=== PATIENT | female | born 1965 | race Hispanic/Latino ===

== ENCOUNTER 2017-12-18 07:41 | Emergency (ER) | payer OTHER ==
--- NOTE | 2017-12-18 08:33 | RAD REPORT ---
EXAM DESCRIPTION: CT - Head C Spine Mpr Wo Con - 12/18/2017 8:20 am CLINICAL HISTORY: Headache and neck pain COMPARISON: 2012 TECHNIQUE: Computed axial tomography of the head and cervical spine was obtained. Sagittal and coronal reconstruction was performed. All CT scans are performed using dose optimization technique as appropriate and may include automated exposure control or mA/KV adjustment according to patient size. FINDINGS: An intracranial bleed is not seen. The ventricles are normal in caliber. An extra-axial fl uid collection is not noted.Fluid within the visualized sinuses and mastoids is not seen A cervical fracture is not visualized. No dislocation is noted. Spinal stenosis is not seen. An obvio us significant disc bulge/herniation is not noted IMPRESSION: No acute intracranial abnormality is seen. A cervical fracture is not visualized. If the patient continues to have symptoms to suggest intracra nial /spinal cord/spinal canal pathology then MRI would be recommended
--- NOTE | 2017-12-18 08:50 | ER ---
Nurse's Notes [facility] Name: Erika Byrnes Age: 52 yrs Sex: Female : 1965 Arrival Date: 12/18/2017 Time: 07:43 Bed 5 Private MD: Diagnosis: Headache Presentation: 12/18 07:51 Presenting complaint: Patient states: began having headaches recently, and began ss checking BP 3 days ago. Pt noticed her BP has been elevated, 164/117, 179/105 even with doubling up on her home medication. Pt is unable to see her PCP until Thursday. Transition of care: patient was not received from another setting of care. Onset of symptoms is unknown. Risk Assessment: Do you want to hurt yourself or someone else? Patient reports no desire to harm self or others. Initial Sepsis Screen: Does the patient meet any 2 criteria? No. Patient's initial sepsis screen is negative. Does the patient have a suspected source of infection? No. Patient's initial sepsis screen is negative. Care prior to arrival: None. 07:51 Method Of Arrival: Ambulatory ss 07:51 Acuity: JAIRO 3 ss Historical: - Allergies: 07:54 No Known Allergies; ss - Home Meds: 07:54 losartan 50 mg Oral tab 1 tab once daily [Active]; metoprolol tartrate 50 mg Oral tab 1 ss tab once daily [Active]; montelukast 10 mg oral tab 1 tab once daily [Active]; - PMHx: 07:54 Hypertension; ss - PSHx: 07:54 Cholecystectomy; cyst removed from breasts and ovaries; tummy tuck; C Section; ss - Immunization history:: Adult Immunizations up to date. - Social history:: Smoking status: Patient/guardian denies using tobacco. - Ebola Screening: : Patient denies exposure to infectious person Patient denies travel to an Ebola-affected area in the 21 days before illness onset. Screenin:49 Abuse screen: Denies threats or abuse. Denies injuries from another. Nutritional ph screening: No deficits noted. Tuberculosis screening: No symptoms or risk factors identified. Fall Risk None identified. Assessment: 08:00 General: Appears in no apparent distress. Behavior is calm, cooperative, appropriate ph for age, Denies fever, feeling ill. Pain: Complains of pain in occipital area and base of the skull. Neuro: Level of Consciousness is awake, alert, obeys commands, Oriented to person, place, time, situation, Moves all extremities. Full function Gait is steady, Speech is normal, Facial symmetry appears normal, Intact Reports headache occipital area, Denies weakness blurred vision dizziness. Cardiovascular: Denies chest pain, nausea, shortness of breath, Capillary refill < 3 seconds in bilateral fingers Patient's skin is warm and dry. Respiratory: Airway is patent Respiratory effort is even, unlabored. Derm: Skin is intact, is healthy with good turgor, Skin is pink, warm \T\ dry. Musculoskeletal: Circulation, motion, and sensation intact. Range of motion: intact in all extremities. 08:56 Reassessment: Patient appears in no apparent distress at this time. Patient and/or ph family updated on plan of care and expected duration. Pain level reassessed. Patient is alert, oriented x 3, equal unlabored respirations, skin warm/dry/pink. Pt d/c home. Vital Signs: 07:54 BP 155 / 100; Pulse 73; Resp 17; Temp 98.2(O); Pulse Ox 97% on R/A; Weight 86.18 kg; ss Height 5 ft. 3 in. (160.02 cm); Pain 5/10; 08:50 BP 134 / 80; Pulse 68; Resp 18; Pulse Ox 98% on R/A; ph 07:54 Body Mass Index 33.66 (86.18 kg, 160.02 cm) ss Jimmy Coma Score: 08:54 Eye Response: spontaneous(4). Verbal Response: oriented(5). Motor Response: obeys snw commands(6). Total: 15. NIH Stroke Scale Scores: 08:16 NIHSS Score: 0 snw ED Course: 07:43 Patient arrived in ED. tw3 07:53 Triage completed. ss 07:53 Litzy Boyce, MAHNAZ is Primary Nurse. ph 07:54 Arm band placed on right wrist. ss 07:59 [facility] snw 07:59 Omega Marcelino MD is Attending Physician. snw 08:18 CT completed. Patient tolerated procedure well. Patient moved to CT via wheelchair. nj Patient moved back from CT. 08:20 CT Head C Spine In Process Unspecified. EDMS 08:50 Patient has correct armband on for positive identification. Placed in gown. Bed in low ph position. Call light in reach. Side rails up X 1. Pulse ox on. NIBP on. Warm blanket given. 08:50 No provider procedures requiring assistance completed. ph 08:57 Patient did not have IV access during this emergency room visit. ph Administered Medications: No medications were administered Outcome: 08:49 Discharge ordered by . snw 08:57 Discharged to home ambulatory. ph 08:57 Condition: good 08:57 Discharge instructions given to patient, Instructed on discharge instructions, follow up and referral plans. medication usage, Demonstrated understanding of instructions, follow-up care, medications, Prescriptions given X 3. 08:58 Patient left the ED. ph NIH Stroke Scale - NIH Stroke Score Date: 12/18/2017 Time: 08:16 Total Score = 0 1a. Level of Consciousness (LOC) - 0(Alert) 1b. Level of Consciousness (LOC) (Year \T\ Age) - 0(Both) 1c. LOC Commands (Open \T\ Closes Eyes/Vegetable Scullion) - 0(Both) 2. Best Gaze (Lateral Gaze Paresis) - 0(Normal) 3. Visual Field Loss - 0(No visual loss) 4. Facial Palsy - 0(Normal) 5a. Left Arm: Motor (10-second hold) - 0(No drift) 5b. Right Arm: Motor (10-second hold) - 0(No drift) 6a. Left Leg: Motor (5-second hold - always test supine) - 0(No drift) 6b. Right Leg: Motor (5-second hold - always test supine) - 0(No drift) 7. Limb Ataxia (finger/nose \T\ heel/gifford - test with eyes open) - 0(Absent) 8. Sensory Loss (pinprick arms/legs/face) - 0(Normal) 9. Best Language: Aphasia (description/naming/reading) - 0(No aphasia) 10. Dysarthria (speech clarity - read or repeat words) - 0(Normal) 11. Extinction and Inattention (visual/tactile/auditory/spatial/personal) - 0(No abnormality) Initials: snw Signatures: Dispatcher [employer] EDMS Kelly Jackson, DRAWER IN STITCH BONDING MACHINE-C DRAWER IN STITCH BONDING MACHINE-Csnw Amarilis Philippe RN RN Litzy Boyce RN RN Mayank Gould Mickey, Elidia tw3
--- NOTE | 2017-12-18 08:50 | EDPHYS ---
Physician Documentation [facility] Name: Erika Byrnes Age: 52 yrs Sex: Female : 1965 Arrival Date: 12/18/2017 Time: 07:43 Bed 5 Private MD: ED Physician Omega Marcelino HPI: 12/18 08:17 This 52 yrs old Female presents to ER via Ambulatory with complaints of snw Headache. 08:17 The patient complains of pain to the posterior neck/occiput. The patient describes the snw headache as a pressure. Onset: The symptoms/episode began/occurred gradually, 1 month(s) ago. Associated signs and symptoms: The patient has no apparent associated signs or symptoms. Severity of symptoms: At its worst the pain was moderate. Headache History: The patient has had previous headaches and this one is similar to previous episodes. It is unknown whether or not the patient has had similar symptoms in the past. has an appt with Dr. Holden on Thursday. htn hx, takes losartan and metoprolol, migraine hx. Historical: - Allergies: 07:54 No Known Allergies; ss - Home Meds: 07:54 losartan 50 mg Oral tab 1 tab once daily [Active]; metoprolol tartrate 50 mg Oral tab 1 ss tab once daily [Active]; montelukast 10 mg oral tab 1 tab once daily [Active]; - PMHx: 07:54 Hypertension; ss - PSHx: 07:54 Cholecystectomy; cyst removed from breasts and ovaries; tummy tuck; C Section; ss - Immunization history:: Adult Immunizations up to date. - Social history:: Smoking status: Patient/guardian denies using tobacco. - Ebola Screening: : Patient denies exposure to infectious person Patient denies travel to an Ebola-affected area in the 21 days before illness onset. ROS: 08:16 Constitutional: Negative for fever, chills, and weight loss, Eyes: Negative for injury, snw pain, redness, and discharge, ENT: Negative for injury, pain, and discharge, Neck: Negative for injury, pain, and swelling, Cardiovascular: Negative for chest pain, palpitations, and edema, Respiratory: Negative for shortness of breath, cough, wheezing, and pleuritic chest pain, Abdomen/GI: Negative for abdominal pain, nausea, vomiting, diarrhea, and constipation, Back: Negative for injury and pain, : Negative for injury, bleeding, discharge, and swelling, MS/Extremity: Negative for injury and deformity, Skin: Negative for injury, rash, and discoloration. 08:16 Neuro: Positive for headache, of the scalp. Exam: 08:16 Constitutional: This is a well developed, well nourished patient who is awake, alert, snw and in no acute distress. Head/Face: Normocephalic, atraumatic. Eyes: Pupils equal round and reactive to light, extra-ocular motions intact. Lids and lashes normal. Conjunctiva and sclera are non-icteric and not injected. Cornea within normal limits. Periorbital areas with no swelling, redness, or edema. ENT: Nares patent. No nasal discharge, no septal abnormalities noted. Tympanic membranes are normal and external auditory canals are clear. Oropharynx with no redness, swelling, or masses, exudates, or evidence of obstruction, uvula midline. Mucous membranes moist. Neck: Trachea midline, no thyromegaly or masses palpated, and no cervical lymphadenopathy. Supple, full range of motion without nuchal rigidity, or vertebral point tenderness. No Meningismus. Chest/axilla: Normal chest wall appearance and motion. Nontender with no deformity. No lesions are appreciated. Cardiovascular: Regular rate and rhythm with a normal S1 and S2. No gallops, murmurs, or rubs. Normal PMI, no JVD. No pulse deficits. Respiratory: Lungs have equal breath sounds bilaterally, clear to auscultation and percussion. No rales, rhonchi or wheezes noted. No increased work of breathing, no retractions or nasal flaring. Abdomen/GI: Soft, non-tender, with normal bowel sounds. No distension or tympany. No guarding or rebound. No evidence of tenderness throughout. Back: No spinal tenderness. No costovertebral tenderness. Full range of motion. Skin: Warm, dry with normal turgor. Normal color with no rashes, no lesions, and no evidence of cellulitis. MS/ Extremity: Pulses equal, no cyanosis. Neurovascular intact. Full, normal range of motion. Neuro: Awake and alert, GCS 15, oriented to person, place, time, and situation. Cranial nerves II-XII grossly intact. Motor strength 5/5 in all extremities. Sensory grossly intact. Cerebellar exam normal. Normal gait. Vital Signs: 07:54 BP 155 / 100; Pulse 73; Resp 17; Temp 98.2(O); Pulse Ox 97% on R/A; Weight 86.18 kg; ss Height 5 ft. 3 in. (160.02 cm); Pain 5/10; 08:50 BP 134 / 80; Pulse 68; Resp 18; Pulse Ox 98% on R/A; ph 07:54 Body Mass Index 33.66 (86.18 kg, 160.02 cm) ss NIH Stroke Scale Scores: 08:16 NIHSS Score: 0 snw Jimmy Coma Score: 08:54 Eye Response: spontaneous(4). Verbal Response: oriented(5). Motor Response: obeys snw commands(6). Total: 15. MDM: 08:00 Patient medically screened. snw 08:54 Data reviewed: vital signs, nurses notes. Data interpreted: Pulse oximetry: on room air snw is 98 %. Interpretation: normal. Counseling: I had a detailed discussion with the patient and/or guardian regarding: the historical points, exam findings, and any diagnostic results supporting the discharge/admit diagnosis, the presence of at least one elevated blood pressure reading (>120/80) during this emergency department visit, the need for outpatient follow up, to return to the emergency department if symptoms worsen or persist or if there are any questions or concerns that arise at home. 12/18 08:06 Order name: CT Head C Spine; Complete Time: 08:36 snw Administered Medications: No medications were administered Disposition: 10:11 Co-signature as Attending Physician, Omega Marcelino MD I agree with the assessment and kdr plan of care. Disposition: 12/18/17 08:49 Discharged to Home. Impression: Headache. - Condition is Stable. - Discharge Instructions: General Headache Without Cause, Hypertension. - Prescriptions for Clonidine 0.1 mg Oral Tablet - take 1 tablet by ORAL route every 12 hours Prn diastolic greater than 90; 30 tablet. Zyrtec 10 mg Oral Tablet - take 1 tablet by ORAL route once daily As needed; 20 tablet. orphenadrine citrate 100 mg Oral Tablet Sustained Release - take 1 tablet by ORAL route 2 times per day As needed; 20 tablet. - Medication Reconciliation Form, Thank You Letter, Antibiotic Education, Prescription Opioid Use form. - Follow up: Private Physician; When: 2 - 3 days; Reason: Recheck today's complaints, Continuance of care, Re-evaluation by your physician. Follow up: Emergency Department; When: As needed; Reason: Worsening of condition. NIH Stroke Scale - NIH Stroke Score Date: 12/18/2017 Time: 08:16 Total Score = 0 1a. Level of Consciousness (LOC) - 0(Alert) 1b. Level of Consciousness (LOC) (Year \T\ Age) - 0(Both) 1c. LOC Commands (Open \T\ Closes Eyes/Developer Programmer Analyst) - 0(Both) 2. Best Gaze (Lateral Gaze Paresis) - 0(Normal) 3. Visual Field Loss - 0(No visual loss) 4. Facial Palsy - 0(Normal) 5a. Left Arm: Motor (10-second hold) - 0(No drift) 5b. Right Arm: Motor (10-second hold) - 0(No drift) 6a. Left Leg: Motor (5-second hold - always test supine) - 0(No drift) 6b. Right Leg: Motor (5-second hold - always test supine) - 0(No drift) 7. Limb Ataxia (finger/nose \T\ heel/gifford - test with eyes open) - 0(Absent) 8. Sensory Loss (pinprick arms/legs/face) - 0(Normal) 9. Best Language: Aphasia (description/naming/reading) - 0(No aphasia) 10. Dysarthria (speech clarity - read or repeat words) - 0(Normal) 11. Extinction and Inattention (visual/tactile/auditory/spatial/personal) - 0(No abnormality) Initials: snw Signatures: Dispatcher [employer] EDMS Omega Marcelino MD MD kdr Therrien, Shelly, MINE CAR REPAIRER-C MINE CAR REPAIRER-Csnw Amairlis Philippe RN RN ss Litzy Boyce RN RN ph Corrections: (The following items were deleted from the chart) 08:58 08:49 12/18/2017 08:49 Discharged to Home. Impression: Headache. Condition is ph Stable. Forms are Medication Reconciliation Form, Thank You Letter, Antibiotic Education, Prescription Opioid Use. Follow up: Private Physician; When: 2 - 3 days; Reason: Recheck today's complaints, Continuance of care, Re-evaluation by your physician. Follow up: Emergency Department; When: As needed; Reason: Worsening of condition. snw
== END 2017-12-18 08:58 | disposition home or self-care (01) ==
LOC: ER 07:41
DX: R51 Headache (principal); I10 Essential (primary) hypertension
CPT/HCPCS: 70450; 72125; 99284

== ENCOUNTER 2018-04-15 21:50 | Emergency (ER) | payer OTHER ==
[2018-04-16] MEDS ORDERED: DIPHENHYDRAMINE 50 MG/ML VIAL ONE (00:50)
[2018-04-16] MEDS ORDERED: ONDANSETRON 4 MG/2 ML VIAL ONE (00:51)
[2018-04-16] MEDS ORDERED: NA CHLORIDE 0.9% 1,000 ML ONE (00:51)
[2018-04-16] MEDS ORDERED: KETOROLAC 30 MG/ML INJ ONE (00:51)
--- NOTE | 2018-04-16 01:19 | EDPHYS ---
Physician Documentation [facility] Name: Erika Byrnes Age: 52 yrs Sex: Female : 1965 Arrival Date: 04/15/2018 Time: 22:02 Bed 6 Private MD: Adilene Holden K ED Physician Jonathan Riley HPI: 04/16 00:58 This 52 yrs old Female presents to ER via Ambulatory with complaints of tw4 Vomiting, Headache. 00:58 The patient presents to the emergency department with nausea, vomiting, that is tw4 continuous. Onset: The symptoms/episode began/occurred today. Possible causes: unknown. The symptoms are aggravated by nothing. The symptoms are alleviated by nothing. Associated signs and symptoms: The patient has no apparent associated signs or symptoms. Severity of symptoms: At their worst the symptoms were moderate in the emergency department the symptoms are unchanged. The patient has not experienced similar symptoms in the past. 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 - Social history:: Smoking status: Patient/guardian denies using tobacco. - Ebola Screening: : No symptoms or risks identified at this time. ROS: 04/16 00:58 Constitutional: Negative for fever, chills, and weight loss, Cardiovascular: Negative tw4 for chest pain, palpitations, and edema, Respiratory: Negative for shortness of breath, cough, wheezing, and pleuritic chest pain, Abdomen/GI: Negative for abdominal pain, nausea, vomiting, diarrhea, and constipation, Back: Negative for injury and pain, MS/Extremity: Negative for injury and deformity. 00:58 Neuro: Positive for headache, Negative for altered mental status, dizziness, gait tw4 disturbance, numbness, seizure activity, speech changes, syncope, near syncope, tinnitus, tremor, visual changes. Exam: 00:58 Constitutional: This is a well developed, well nourished patient who is awake, alert, tw4 and in no acute distress. Head/Face: Normocephalic, atraumatic. Chest/axilla: Normal chest wall appearance and motion. Nontender with no deformity. No lesions are appreciated. Cardiovascular: Regular rate and rhythm with a normal S1 and S2. No gallops, murmurs, or rubs. Normal PMI, no JVD. No pulse deficits. Respiratory: Lungs have equal breath sounds bilaterally, clear to auscultation and percussion. No rales, rhonchi or wheezes noted. No increased work of breathing, no retractions or nasal flaring. Abdomen/GI: Soft, non-tender, with normal bowel sounds. No distension or tympany. No guarding or rebound. No evidence of tenderness throughout. Back: No spinal tenderness. No costovertebral tenderness. Full range of motion. MS/ Extremity: Pulses equal, no cyanosis. Neurovascular intact. Full, normal range of motion. Neuro: Awake and alert, GCS 15, oriented to person, place, time, and situation. Cranial nerves II-XII grossly intact. Motor strength 5/5 in all extremities. Sensory grossly intact. Cerebellar exam normal. Normal gait. Vital Signs: 04/15 22:41 BP 136 / 85; Pulse 75; Resp 16 S; Temp 98.7(O); Pulse Ox 96% on R/A; Weight 90.72 kg bb (R); Height 5 ft. 3 in. (160.02 cm) (R); Pain 7/10; 04/16 01:19 BP 126 / 5; Pulse 73; Resp 16; Temp 98.7; Pulse Ox 98% on R/A; Pain 0/10; tl1 04/15 22:41 Body Mass Index 35.43 (90.72 kg, 160.02 cm) bb MDM: 04/15 23:47 Patient medically screened. tw4 04/16 01:17 Differential diagnosis: Nonspecific abd pain, gastritis. Data reviewed: vital signs, tw4 nurses notes. Data interpreted: manager monitoring: Pulse oximetry: Interpretation: normal. Counseling: I had a detailed discussion with the patient and/or guardian regarding: the historical points, exam findings, and any diagnostic results supporting the discharge/admit diagnosis. Special discussion: I discussed with the patient/guardian in detail that at this point there is no indication for admission to the hospital. It is understood, however, that if the symptoms persist or worsen the patient needs to return immediately for re-evaluation. 01:20 Medication response: Toradol relieved patient's pain. The symptoms have resolved. tw4 Response to treatment: the patient's symptoms have resolved after treatment, the patient's pain is gone, and as a result, I will discharge patient, administer pain medication, Fioricet. ED course: Pt received pain meds, Benadryl and Toradol and stated that she felt better. Administered Medications: 00:45 Drug: NS 0.9% 1000 ml Route: IV; Rate: 1 bolus; Site: right antecubital; tl1 01:26 Follow up: IV Status: Completed infusion tl1 00:46 Drug: Benadryl 12.5 mg Route: IVP; Infused Over: 2 mins; Site: right antecubital; tl1 01:26 Follow up: Response: No adverse reaction; Marked relief of symptoms; Pain is decreased tl1 00:47 Drug: TORadol 30 mg Route: IVP; Infused Over: 2 mins; Site: right antecubital; tl1 01:26 Follow up: Response: No adverse reaction; Marked relief of symptoms; Pain is decreased tl1 00:47 Drug: Zofran 4 mg Route: IVP; Infused Over: 2 mins; Site: right antecubital; tl1 01:26 Follow up: Response: No adverse reaction; Marked relief of symptoms; Nausea is decreasedtl1 Disposition: 04/16/18 01:18 Discharged to Home. Impression: Migraine without aura, not intractable. - Condition is Stable. - Discharge Instructions: Migraine Headache. - Prescriptions for Fiorinal 50- 325-40 mg Oral Capsule - take 1 capsule by ORAL route every 4 hours As needed - not to exceed 6 capsules per day; 20 capsule. - Work release form, Medication Reconciliation Form, Thank You Letter, Antibiotic Education, Prescription Opioid Use form. - Follow up: Adilene Holden MD; When: Upon discharge from the Emergency Department; Reason: If symptoms return, Recheck today's complaints, Continuance of care. - Problem is new. - Symptoms have improved. Signatures: No Rendon RN RN bb Uma Lord RN RN tl1 Jonathan Riley MD MD tw4 Corrections: (The following items were deleted from the chart) 01:30 01:18 04/16/2018 01:18 Discharged to Home. Impression: Migraine without aura, not tl1 intractable. Condition is Stable. Forms are Medication Reconciliation Form, Thank You Letter, Antibiotic Education, Prescription Opioid Use. Follow up: Adilene Holden; When: Upon discharge from the Emergency Department; Reason: If symptoms return, Recheck today's complaints, Continuance of care. Problem is new. Symptoms have improved. tw4
--- NOTE | 2018-04-16 01:19 | ER ---
Nurse's Notes [facility] Name: Erika Byrnes Age: 52 yrs Sex: Female : 1965 Arrival Date: 04/15/2018 Time: 22:02 Bed 6 Private MD: Adilene Holden K Diagnosis: Migraine without aura, not intractable Presentation: 04/15 22:38 Presenting complaint: Patient states: she has been vomiting for a couple of days with bb abdominal then developed a migraine today at approx 1600. Transition of care: patient was not received from another setting of care. Onset of symptoms was April 13, 2018. Risk Assessment: Do you want to hurt yourself or someone else? Patient reports no desire to harm self or others. Initial Sepsis Screen: Does the patient meet any 2 criteria? No. Patient's initial sepsis screen is negative. Does the patient have a suspected source of infection? No. Patient's initial sepsis screen is negative. Care prior to arrival: None. 22:38 Method Of Arrival: Ambulatory bb 22:38 Acuity: JAIRO 3 bb Triage Assessment: 22:45 General: Appears in no apparent distress. uncomfortable, Behavior is calm, cooperative, tl1 appropriate for age. GI: Reports nausea. 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 - Social history:: Smoking status: Patient/guardian denies using tobacco. - Ebola Screening: : No symptoms or risks identified at this time. Screenin:45 Abuse screen: Denies threats or abuse. Denies injuries from another. Nutritional tl1 screening: No deficits noted. Tuberculosis screening: No symptoms or risk factors identified. Fall Risk IV access (20 points). Assessment: 22:45 General: Appears in no apparent distress. uncomfortable, Behavior is calm, cooperative, tl1 appropriate for age. Pain: Complains of pain in forehead Pain currently is 10 out of 10 on a pain scale. Quality of pain is described as pressure, squeezing, throbbing, Pain began 1 day ago. Is continuous. Neuro: Level of Consciousness is awake, alert, obeys commands, Oriented to person, place, time, situation. Cardiovascular: Denies chest pain. Respiratory: Airway is patent Trachea midline Respiratory effort is even, unlabored, Breath sounds are clear bilaterally. GI: Abdomen is non-distended, Bowel sounds present X 4 quads. Reports nausea. : No signs and/or symptoms were reported regarding the genitourinary system. EENT: No signs and/or symptoms were reported regarding the EENT system. Derm: No signs and/or symptoms reported regarding the dermatologic system. Vital Signs: 22:41 BP 136 / 85; Pulse 75; Resp 16 S; Temp 98.7(O); Pulse Ox 96% on R/A; Weight 90.72 kg bb (R); Height 5 ft. 3 in. (160.02 cm) (R); Pain 7/10; 04/16 01:19 BP 126 / 5; Pulse 73; Resp 16; Temp 98.7; Pulse Ox 98% on R/A; Pain 0/10; tl1 04/15 22:41 Body Mass Index 35.43 (90.72 kg, 160.02 cm) bb ED Course: 04/15 22:02 Patient arrived in ED. es 22:03 Adilene Holden MD is Private Physician. es 22:39 Triage completed. bb 22:41 Arm band placed on Patient placed in waiting room, Patient notified of wait time. bb 22:45 Patient has correct armband on for positive identification. Placed in gown. Bed in low tl1 position. Call light in reach. Side rails up X 1. 23:47 Jonathan Riley MD is Attending Physician. tw4 04/16 00:40 Inserted saline lock: 20 gauge in right antecubital area, using aseptic technique. tl1 wrist, using aseptic technique. Blood collected. 00:48 No provider procedures requiring assistance completed. tl1 01:18 Adilene Holden MD is Referral Physician. tw4 01:20 Uma Lord, RN is Primary Nurse. tl1 01:25 IV discontinued, intact, bleeding controlled, No redness/swelling at site. Pressure tl1 dressing applied. Administered Medications: 00:45 Drug: NS 0.9% 1000 ml Route: IV; Rate: 1 bolus; Site: right antecubital; tl1 01:26 Follow up: IV Status: Completed infusion tl1 00:46 Drug: Benadryl 12.5 mg Route: IVP; Infused Over: 2 mins; Site: right antecubital; tl1 01:26 Follow up: Response: No adverse reaction; Marked relief of symptoms; Pain is decreased tl1 00:47 Drug: TORadol 30 mg Route: IVP; Infused Over: 2 mins; Site: right antecubital; tl1 01:26 Follow up: Response: No adverse reaction; Marked relief of symptoms; Pain is decreased tl1 00:47 Drug: Zofran 4 mg Route: IVP; Infused Over: 2 mins; Site: right antecubital; tl1 01:26 Follow up: Response: No adverse reaction; Marked relief of symptoms; Nausea is decreasedtl1 Outcome: 01:18 Discharge ordered by . tw4 01:30 Patient left the ED. tl1 01:30 Discharged to home ambulatory, with family. tl1 01:30 Condition: good 01:30 Discharge instructions given to patient, family, Instructed on discharge instructions, follow up and referral plans. medication usage, Demonstrated understanding of instructions, follow-up care, medications, Prescriptions given X 1. Signatures: Gissell Argueta Brenda, RN RN Uma Lord, RN RN tl1 Jonathan Riley MD MD tw4
== END 2018-04-16 01:30 | disposition home or self-care (01) ==
LOC: ER 21:50
DX: G43.009 Migraine without aura, not intractable, without status migrainosus (principal); I10 Essential (primary) hypertension
CPT/HCPCS: 96361; 96374; 96375; 99284; J2405; J7030

== ENCOUNTER 2018-05-19 08:47 | Emergency (ER) | payer OTHER ==
--- NOTE | 2018-05-19 10:08 | RAD REPORT ---
EXAM DESCRIPTION: RAD - Knee Left 3 View - 05/19/2018 9:49 am CLINICAL HISTORY: PAIN COMPARISON: No comparisons FINDINGS: No fracture or dislocation seen. Small suprapatellar joint effusion.
--- NOTE | 2018-05-19 10:35 | EDPHYS ---
Physician Documentation [facility] Name: Erika Byrnes Age: 52 yrs Sex: Female : 1965 Arrival Date: 05/19/2018 Time: 08:50 Bed 10 Private MD: Adilene Holden K ED Physician Gen Jackson HPI: 05/19 10:00 This 52 yrs old Female presents to ER via Wheelchair with complaints of Left pm1 Knee Injury. 10:00 The patient presents with pain. The complaints affect the left knee. Context: The pm1 problem was sustained outdoors, resulted from running, the patient can fully bear weight, the patient is able to ambulate, with mild difficulty, Problem is a result from a previous injury: No. Onset: The symptoms/episode began/occurred 3 day(s) ago. Modifying factors: The symptoms are alleviated by elevating leg, the symptoms are aggravated by weight bearing, straightening out leg. Associated signs and symptoms: Pertinent negatives calf tenderness, fever, numbness, swelling, tingling, vomiting. Treatment prior to arrival includes: no previous treatment. Severity of symptoms: in the emergency department the symptoms are actually worse. The patient has not experienced similar symptoms in the past. The patient has not recently seen a physician. Patient was jogging and left knee popped 3 days ago but pain was tolerable. Patient was running and felt her left knee pop again but the pain is worse. Patient reports pain below her left patella with straighten leg and she also posterior knee pain. 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 - Ebola Screening: : Patient negative for fever greater than or equal to 101.5 degrees Fahrenheit, and additional compatible Ebola Virus Disease symptoms Patient denies exposure to infectious person Patient denies travel to an Ebola-affected area in the 21 days before illness onset No symptoms or risks identified at this time. - Social history:: Smoking status: . ROS: 10:00 Constitutional: Negative for fever, chills, and weight loss, Eyes: Negative for injury, pm1 pain, redness, and discharge, ENT: Negative for injury, pain, and discharge, Neck: Negative for injury, pain, and swelling, Cardiovascular: Negative for chest pain, palpitations, and edema, Respiratory: Negative for shortness of breath, cough, wheezing, and pleuritic chest pain, Abdomen/GI: Negative for abdominal pain, nausea, vomiting, diarrhea, and constipation, Back: Negative for injury and pain, : Negative for injury, bleeding, discharge, and swelling. 10:00 Skin: Negative for injury, rash, and discoloration, Neuro: Negative for headache, weakness, numbness, tingling, and seizure. 10:00 MS/extremity: Positive for pain, swelling, of the left knee, Negative for deformity, ecchymosis. Exam: 10:00 Constitutional: This is a well developed, well nourished patient who is awake, alert, pm1 and in no acute distress. Head/Face: Normocephalic, atraumatic. Neck: Trachea midline, no thyromegaly or masses palpated, and no cervical lymphadenopathy. Supple, full range of motion without nuchal rigidity, or vertebral point tenderness. No Meningismus. Chest/axilla: Normal chest wall appearance and motion. Nontender with no deformity. No lesions are appreciated. Cardiovascular: Regular rate and rhythm with a normal S1 and S2. No gallops, murmurs, or rubs. Normal PMI, no JVD. No pulse deficits. Respiratory: Lungs have equal breath sounds bilaterally, clear to auscultation and percussion. No rales, rhonchi or wheezes noted. No increased work of breathing, no retractions or nasal flaring. Abdomen/GI: Soft, non-tender, with normal bowel sounds. No distension or tympany. No guarding or rebound. No evidence of tenderness throughout. Back: No spinal tenderness. No costovertebral tenderness. Full range of motion. Skin: Warm, dry with normal turgor. Normal color with no rashes, no lesions, and no evidence of cellulitis. 10:00 Musculoskeletal/extremity: Extremities: grossly normal except: noted in the posterior aspect of left knee: tenderness, There is no evidence of decreased ROM, deformity, ecchymosis, ROM: intact in all extremities, Circulation is intact in all extremities. Vital Signs: 09:27 Pulse 89; Resp 16; Temp 98.2; Pulse Ox 100% on R/A; Weight 79.38 kg; Height 5 ft. 3 in. iw (160.02 cm); Pain 09/08; 09:27 Body Mass Index 31.00 (79.38 kg, 160.02 cm) MDM: 09:08 Patient medically screened. pm1 10:33 Data reviewed: vital signs. Data interpreted: Pulse oximetry: on room air is 100 %. pm1 Interpretation: normal. Counseling: I had a detailed discussion with the patient and/or guardian regarding: the historical points, exam findings, and any diagnostic results supporting the discharge/admit diagnosis, radiology results, the need for outpatient follow up, for definitive care, a orthopedic surgeon, to return to the emergency department if symptoms worsen or persist or if there are any questions or concerns that arise at home. 05/19 09:11 Order name: Knee Left 3 View XRAY; Complete Time: 10:19 pm1 05/19 09:11 Order name: Knee Immobilizer; Complete Time: 10:53 pm1 05/19 09:11 Order name: Crutches; Complete Time: 10:53 pm1 Administered Medications: No medications were administered Disposition: 05/20 07:59 Co-signature as Attending Physician, Gen Jackson MD I agree with the assessment and red plan of care. Disposition: 05/19/18 10:34 Discharged to Home. Impression: Pain in left knee. - Condition is Stable. - Discharge Instructions: Crutch Use, Knee Immobilizer, Knee Pain. - Work release form, Medication Reconciliation Form, Thank You Letter form. - Follow up: Emergency Department; When: As needed; Reason: Worsening of condition. Follow up: Private Physician; When: 2 - 3 days; Reason: Recheck today's complaints, Continuance of care, Re-evaluation by your physician. - Problem is new. - Symptoms have improved. Signatures: Dispatcher [employer] Azalia Mata, Gen Oh RN, MD MD cha Williams, Irene, RN RN iw Marinas, Patrick, JODIE A R COLLECTIONS REP pm1 Corrections: (The following items were deleted from the chart) 05/19 11:47 10:34 05/19/2018 10:34 Discharged to Home. Impression: Pain in left knee. Condition is dm5 Stable. Forms are Medication Reconciliation Form, Thank You Letter, Antibiotic Education, Prescription Opioid Use. Follow up: Emergency Department; When: As needed; Reason: Worsening of condition. Follow up: Private Physician; When: 2 - 3 days; Reason: Recheck today's complaints, Continuance of care, Re-evaluation by your physician. Problem is new. Symptoms have improved. pm1
--- NOTE | 2018-05-19 10:35 | ER ---
Nurse's Notes [facility] Name: Erika Byrnes Age: 52 yrs Sex: Female : 1965 Arrival Date: 05/19/2018 Time: 08:50 Bed 10 Private MD: Adilene Holden K Diagnosis: Pain in left knee Presentation: 05/19 09:16 Presenting complaint: Patient states: left knee pain after running on Thursday, heard and iw felt a pop, pain worse now. Transition of care: patient was not received from another setting of care. Onset of symptoms was May 16, 2018. Risk Assessment: Do you want to hurt yourself or someone else? Patient reports no desire to harm self or others. Initial Sepsis Screen: Does the patient meet any 2 criteria? No. Patient's initial sepsis screen is negative. Does the patient have a suspected source of infection? No. Patient's initial sepsis screen is negative. Care prior to arrival: None. 09:16 Method Of Arrival: Wheelchair iw 09:16 Acuity: JAIRO 4 iw Triage Assessment: 09:45 General: Appears in no apparent distress. Behavior is calm. Injury Description:. 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 - Ebola Screening: : Patient negative for fever greater than or equal to 101.5 degrees Fahrenheit, and additional compatible Ebola Virus Disease symptoms Patient denies exposure to infectious person Patient denies travel to an Ebola-affected area in the 21 days before illness onset No symptoms or risks identified at this time. - Social history:: Smoking status: . Screenin:46 Abuse screen: Denies threats or abuse. Denies injuries from another. Nutritional iw screening: No deficits noted. Tuberculosis screening: No symptoms or risk factors identified. Fall Risk None identified. Assessment: 09:45 General: Appears in no apparent distress. Behavior is calm, cooperative. Pain: iw Complains of pain in left knee. Neuro: Level of Consciousness is awake, alert, obeys commands, Oriented to person, place, time. Cardiovascular: Patient's skin is warm and dry. Respiratory: Respiratory effort is even, unlabored, Respiratory pattern is regular. Derm: Skin is intact, is healthy with good turgor. Musculoskeletal: Range of motion: limited in left knee. Vital Signs: 09:27 Pulse 89; Resp 16; Temp 98.2; Pulse Ox 100% on R/A; Weight 79.38 kg; Height 5 ft. 3 in. iw (160.02 cm); Pain 7/10; 09:27 Body Mass Index 31.00 (79.38 kg, 160.02 cm) iw ED Course: 08:50 Patient arrived in ED. mr 08:52 Adilene Holden MD is Private Physician. mr 09:07 Kira Garcia RN is Primary Nurse. iw 09:08 [facility]. pm1 09:08 Gen Jackson MD is Attending Physician. pm1 09:17 Triage completed. iw 09:17 Patient has correct armband on for positive identification. iw 09:28 Arm band placed on. iw 09:49 X-ray completed. Portable x-ray completed in exam room. Patient tolerated procedure jb2 well. 09:49 Knee Left 3 View XRAY In Process Unspecified. EDMS 10:53 Crutch training done. Knee immobilizer applied on left knee. jb1 11:45 No provider procedures requiring assistance completed. Patient did not have IV access iw during this emergency room visit. Administered Medications: No medications were administered Outcome: 10:34 Discharge ordered by MD. pm1 11:46 Discharged to home with crutches. iw 11:46 Condition: good 11:46 Discharge instructions given to patient, Instructed on discharge instructions, follow up and referral plans. Demonstrated understanding of instructions, follow-up care. 11:47 Patient left the ED. dm5 Signatures: Dispatcher [employer] EDOvidio Crews jb1 Azalia Burdick, Elodia Freeman RN mr GoldbergMasood jb2 Kira Garcia, MAHNAZ RN iw Karthik Jung NP LANCE CREWMEMBER/MLRS SERGEANT pm1
== END 2018-05-19 11:47 | disposition home or self-care (01) ==
LOC: ER 08:47
DX: M25.562 Pain in left knee (principal); I10 Essential (primary) hypertension
CPT/HCPCS: 99283

== ENCOUNTER 2018-10-12 09:24 | Emergency (ER) | payer OTHER ==
--- OUTSIDE RECORDS SUMMARY | 2018-10-12 09:28 | XMS REPORT ---
:1965 Author Organization eClinicalWorks Care Team Providers Name Role Phone Keegan Roach Provider Role Unavailable Allergies, Adverse Reactions, Alerts Substance Reaction Event Type N.K.D.A. Info Not Available Non Drug Allergy Problems Problem Type Condition Code Onset Dates Condition Status Problem Pain in joint of left knee M25.562 Active Problem Strain of left knee, initial S86.912A Active encounter Assessment Pain in joint of left knee M25.562 Active Assessment Strain of left knee, initial S86.912A Active encounter Medications Medication Code Code Instructions Start End Status Dosage System Date Date Hydrochlorothiazide [facility] 39[address]-4 Active not 820-11 [place] [address]-5 Active not 702-10 [place] [address]-4 Active not 607-37 [place] [address]-2 Active not 487-19 defined Results No Known Results Summary Purpose eClinicalWorks Submission
--- OUTSIDE RECORDS SUMMARY | 2018-10-12 09:29 | XMS REPORT ---
:1965 Author Organization [employer] Care Team Providers Name Role Phone Roach Keegan Provider Role Unavailable Allergies, Adverse Reactions, Alerts Substance Reaction Event Type N.K.D.A. Info Not Available Non Drug Allergy Problems Problem Type Condition Code Onset Dates Condition Status Assessment Unspecified internal derangement M23.92 Active of left knee Problem Left sciatic nerve pain M54.32 Active Problem Pain in joint of left knee M25.562 Active Problem Unspecified internal derangement M23.92 Active of left knee Assessment Pain in joint of left knee M25.562 Active Assessment Left sciatic nerve pain M54.32 Active Problem Strain of left knee, initial S86.912A Active encounter Medications Medication Code Code Instructions Start End Status Dosage System Date Date Losartan Potassium [facility] [address]-78 Active not defined Tramadol HCl [facility] 56084196939 50 MG Orally 31 May Active 1 tablet PO Q 6 HRS PRN 24, as needed PAIN 2018 Metoprolol Succinate [facility] [address]-45 Active not ER defined Hydrochlorothiazide [facility] [address]-82 Active not defined Montelukast Sodium [facility] [address]-01 Active not defined Results No Known Results Summary Purpose eClinicalWorks Submission
[2018-10-12] MEDS ORDERED: ONDANSETRON 4 MG/2 ML VIAL ONE (10:06)
[2018-10-12] MEDS ORDERED: DIPHENHYDRAMINE 50 MG/ML VIAL ONE (10:06)
[2018-10-12] MEDS ORDERED: KETOROLAC 30 MG/ML INJ ONE (10:06)
[2018-10-12] MEDS ORDERED: NA CHLORIDE 0.9% 1,000 ML ONE (10:06)
[2018-10-12] MEDS ORDERED: METOCLOPRAMIDE 10 MG/2mL INJ ONE (10:06)
[2018-10-12] MEDS ORDERED: dexAMETHasone 10 MG/ML VIAL ONE (10:06)
[2018-10-12 10:52] LABS: BUN Blood Urea Nitrogen 12 mg/dL (7-18); Bicarbonate 32 mmol/L (21-32); Glucose Level 84 mg/dL (74-106); Potassium 3.3 mmol/L (3.5-5.1); Sodium Level 143 mmol/L (136-145)
[2018-10-12 11:24] LABS: Urine Blood NEGATIVE (NEG); Urine Glucose NEGATIVE (NEG); Urine Protein NEGATIVE (NEG); Urine Specific Gravity 1.015 (1.005-1.030); Urine pH 7.5 (5.0-7.0)
[2018-10-12 11:50] LABS: Absolute Lymphocytes (CBC) 2.4 K/uL (0.7-4.9); Basophils % 0.7 % (0-1.3); Hematocrit 31.8 % (36.0-45.0); Lymphocytes % 38.9 % (15.3-44.8); MPV 9.9 fL (7.6-11.3)
--- NOTE | 2018-10-12 12:22 | ER ---
Nurse's Notes [facility] Name: Erika Byrnes Age: 53 yrs Sex: Female : 1965 Arrival Date: 10/12/2018 Time: 09:26 Bed 16 Private MD: Diagnosis: Headache;Anemia in chronic diseases classified elsewhere Presentation: 10/12 09:33 Presenting complaint: Patient states: Headache for several days, worsening today, pt sg reports sensitivity to light, denies Diarrhea/Fever, reports N/V this morning. Transition of care: patient was not received from another setting of care. Onset of symptoms was October 12, 2018. Risk Assessment: Do you want to hurt yourself or someone else? Patient reports no desire to harm self or others. Initial Sepsis Screen: Does the patient meet any 2 criteria? No. Patient's initial sepsis screen is negative. Does the patient have a suspected source of infection? No. Patient's initial sepsis screen is negative. Care prior to arrival: None. 09:33 Method Of Arrival: Ambulatory 09:33 Acuity: JAIRO 4 sg Triage Assessment: 09:44 Headache History: The patient has had previous headaches and this one is similar to previous episodes. General: Appears uncomfortable, well groomed, well developed, well nourished, Behavior is calm, cooperative, appropriate for age. Pain: Quality of pain is described as pressure, throbbing. 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 Gait is steady, Speech is normal, Facial symmetry appears normal, Pupils are PERRLA, Reports headache in entire frontal area. Respiratory: Airway is patent Respiratory effort is even, unlabored, Respiratory pattern is regular, symmetrical. GI: No signs and/or symptoms were reported involving the gastrointestinal system. : No signs and/or symptoms were reported regarding the genitourinary system. Derm: Skin is pink, warm \T\ dry. Musculoskeletal: No signs and/or symptoms reported regarding the musculoskeletal system. Historical: - Allergies: 09:29 NKA; sg - PMHx: :29 Hypertension; Migraines; sg - PSHx: :29 Cholecystectomy; cyst removed from breasts and ovaries; tummy tuck; C Section; sg - Immunization history:: Adult Immunizations not up to date. - Social history:: Smoking status: unknown. - Ebola Screening: : Patient negative for fever greater than or equal to 101.5 degrees Fahrenheit, and additional compatible Ebola Virus Disease symptoms Patient denies exposure to infectious person Patient denies travel to an Ebola-affected area in the 21 days before illness onset No symptoms or risks identified at this time. Screenin:35 Abuse screen: Denies threats or abuse. Denies injuries from another. Nutritional sg screening: No deficits noted. Tuberculosis screening: No symptoms or risk factors identified. Never had TB. Fall Risk None identified. Assessment: 10:45 Reassessment: Patient appears in no apparent distress at this time. Patient and/or sg family updated on plan of care and expected duration. Pain level reassessed. Vital Signs: 09:33 BP 143 / 87; Pulse 55; Resp 18; Temp 97.2; Pulse Ox 100% on R/A; Weight 76.2 kg; Height sg 5 ft. 4 in. (162.56 cm); Pain 10; 09:33 Body Mass Index 28.84 (76.20 kg, 162.56 cm) ED Course: 09:26 Patient arrived in ED. as 09:28 Matteo Cohen, RN is Primary Nurse. sg 09:28 Arm band placed on. sg 09:35 Theodore Singer MD is Attending Physician. rn 09:35 Triage completed. sg 09:39 Gen Samuels PA is PHCP. cp 09:40 Pulse ox on. NIBP on. Noise minimized. Lights dimmed. Warm blanket given. sg 10:08 Urine collected: clean catch specimen, clear. ms 10:20 Initial lab(s) drawn, by ak, sent to lab. Missed attempt(s): 22 gauge in right sg antecubital area. Bleeding controlled, band aid applied, catheter tip intact. 10:25 Missed attempt(s): 22 gauge in left forearm. Bleeding controlled, band aid applied, sv catheter tip intact. 10:30 Inserted saline lock: 24 gauge in left hand, using aseptic technique. Flushed left hand sv with 5 ml normal saline. 10:40 Patient has correct armband on for positive identification. Placed in gown. Bed in low sg position. Side rails up X2. front desk monitor on. Administered Medications: 10:34 Drug: Decadron - Dexamethasone 10 mg Route: IVP; Site: left hand; sg 10:36 Drug: Benadryl 25 mg Route: IVP; Site: left hand; sg 10:36 Drug: Reglan 10 mg Route: IVP; Site: left hand; sg 10:38 Drug: NS 0.9% 1000 ml Route: IV; Rate: 1 bolus; Site: left hand; sg 10:38 Drug: Zofran 4 mg Route: IVP; Site: left hand; sg 10:38 Drug: TORadol 30 mg Route: IVP; Site: left hand; sg Outcome: 12:18 Discharge ordered by MD. cp 12:24 Discharged to home ambulatory, with family. sg 12:24 Condition: good 12:24 Discharge instructions given to patient, Instructed on discharge instructions, follow up and referral plans. medication usage, safety practices, Demonstrated understanding of instructions, follow-up care, medications, Prescriptions given X 2. 12:26 Patient left the ED. sg Signatures: Courtney Paz RN RN Matteo Cohen RN RN sg Martinez, Amelia as Solis, Maria ms Nieto, Roman, MD MD rn Page, Corey, PA PA cp Corrections: (The following items were deleted from the chart) 09:41 09:33 Presenting complaint: Patient states: Headache for several days, worsening today, sg pt reports sensitivity to light, denies N/V/D/Fever sg
--- NOTE | 2018-10-12 12:23 | EDPHYS ---
Physician Documentation [facility] Name: Erika Byrnes Age: 53 yrs Sex: Female : 1965 Arrival Date: 10/12/2018 Time: 09:26 Bed 16 Private MD: ED Physician Theodore Singer HPI: 10/12 10:00 This 53 yrs old Female presents to ER via Ambulatory with complaints of cp Headache. 10:00 The patient complains of pain to the top of head and forehead. cp 10:00 Onset: The symptoms/episode began/occurred 2 day(s) ago. cp 10:00 Associated signs and symptoms: Pertinent positives: nausea, Photophobia vomiting, cp Pertinent negatives: altered mental status, fever, neck stiffness, sinus congestion, sinus tenderness, weakness. Severity of symptoms: in the emergency department the pain is unchanged, despite home interventions. Headache History: The patient has had previous headaches and this one is similar to previous episodes. Historical: - Allergies: 09:29 NKA; sg - PMHx: :29 Hypertension; Migraines; sg - PSHx: 09:29 Cholecystectomy; cyst removed from breasts and ovaries; tummy tuck; C Section; sg - Immunization history:: Adult Immunizations not up to date. - Social history:: Smoking status: unknown. - Ebola Screening: : Patient negative for fever greater than or equal to 101.5 degrees Fahrenheit, and additional compatible Ebola Virus Disease symptoms Patient denies exposure to infectious person Patient denies travel to an Ebola-affected area in the 21 days before illness onset No symptoms or risks identified at this time. ROS: 10:05 Constitutional: Negative for body aches, chills, fever, poor PO intake. cp 10:05 Eyes: Positive for photophobia, Negative for discharge, redness. cp 10:05 ENT: Negative for drainage from ear(s), ear pain, sore throat, difficulty swallowing, difficulty handling secretions. 10:05 Neck: Negative for injury or acute deformity, pain with movement, pain at rest, stiffness. 10:05 Cardiovascular: Negative for chest pain, palpitations. 10:05 Respiratory: Negative for cough, shortness of breath, wheezing. 10:05 Abdomen/GI: Positive for nausea and vomiting, Negative for abdominal pain, diarrhea, constipation, black/tarry stool, rectal bleeding. 10:05 : Negative for urinary symptoms. 10:05 Skin: Negative for cellulitis, rash. 10:05 Neuro: Negative for altered mental status, dizziness, headache, weakness. 10:05 All other systems are negative. Exam: 10:15 Constitutional: The patient appears in no acute distress, alert, awake, cp non-diaphoretic, non-toxic, well developed, well nourished, uncomfortable. 10:15 Head/Face: Normocephalic, atraumatic. cp 10:15 Eyes: Periorbital structures: appear normal, Pupils: equal, round, and reactive to light and accomodation, Extraocular movements: intact throughout, Conjunctiva: normal, no exudate, no injection, Lids and lashes: appear normal, bilaterally. 10:15 ENT: External ear(s): are unremarkable, Ear canal(s): are normal, clear, TM's: dullness, bilaterally, Nose: is normal, Mouth: Lips: moist, Oral mucosa: pink and intact, moist, Posterior pharynx: is normal, airway is patent, no erythema, no exudate. 10:15 Neck: ROM/movement: is normal, is supple, without pain, no range of motions limitations, no nuchal rigidity. 10:15 Chest/axilla: Inspection: normal, Palpation: is normal, no crepitus, no tenderness. 10:15 Cardiovascular: Rate: bradycardic, Rhythm: regular, Edema: is not appreciated, JVD: is not appreciated. 10:15 Respiratory: the patient does not display signs of respiratory distress, Respirations: normal, no use of accessory muscles, no retractions, no splinting, no tachypnea, labored breathing, is not present, Breath sounds: are clear throughout, no decreased breath sounds, no stridor, no wheezing. 10:15 Abdomen/GI: Inspection: abdomen appears normal, Bowel sounds: active, all quadrants, Palpation: abdomen is soft and non-tender, in all quadrants. 10:15 Back: pain, is absent, ROM is normal. 10:15 Skin: no rash present. 10:15 Neuro: Orientation: to person, place \T\ time. Mentation: is normal, Cerebellar function: is grossly normal, Motor: moves all fours, strength is normal, Sensation: is normal. Vital Signs: 09:33 BP 143 / 87; Pulse 55; Resp 18; Temp 97.2; Pulse Ox 100% on R/A; Weight 76.2 kg; Height sg 5 ft. 4 in. (162.56 cm); Pain 10/; 09:33 Body Mass Index 28.84 (76.20 kg, 162.56 cm) sg MDM: 09:35 Patient medically screened. rn 11:00 Differential diagnosis: cluster headache, meningitis, meningoencephalitis, migraine, cp sinusitis, subarachnoid bleed, subdural hematoma, tension headache. 12:16 Data reviewed: vital signs, nurses notes, lab test result(s). cp 12:17 Counseling: I had a detailed discussion with the patient and/or guardian regarding: the cp historical points, exam findings, and any diagnostic results supporting the discharge/admit diagnosis, lab results, to return to the emergency department if symptoms worsen or persist or if there are any questions or concerns that arise at home. 12:17 Response to treatment: the patient's symptoms have markedly improved after treatment, cp and as a result, I will discharge patient. ED course: VSS. Patient reports headache and nausea markedly improved. No vomiting observed while in ED. Will discharge to home for continued monitoring. 10/12 09:58 Order name: CBC with Diff; Complete Time: 12:00 10/12 12:00 Interpretation: Normal except: RBC 3.60; HGB 10.9; HCT 31.8. 10/12 09:58 Order name: BMP; Complete Time: 11:39 cp 10/12 11:40 Interpretation: Normal except: K 3.3. 10/12 10:47 Order name: Urine Dipstick--Ancillary (enter results); Complete Time: 11:39 bd 10/12 11:40 Interpretation: Normal except: UPH 7.5. cp 10/12 10:47 Order name: Urine --Ancillary (enter results); Complete Time: 11:39 bd 10/12 09:58 Order name: Urine Dipstick-Ancillary (obtain specimen); Complete Time: 10:08 cp 10/12 09:58 Order name: Urine Test (obtain specimen); Complete Time: 10:08 cp 10/12 09:58 Order name: IV; Complete Time: 10:36 cp 10/12 11:07 Order name: Labs - recollect needed: CBC only ; Complete Time: 11:34 ss Administered Medications: 10:34 Drug: Decadron - Dexamethasone 10 mg Route: IVP; Site: left hand; sg 10:36 Drug: Benadryl 25 mg Route: IVP; Site: left hand; sg 10:36 Drug: Reglan 10 mg Route: IVP; Site: left hand; sg 10:38 Drug: NS 0.9% 1000 ml Route: IV; Rate: 1 bolus; Site: left hand; sg 10:38 Drug: Zofran 4 mg Route: IVP; Site: left hand; sg 10:38 Drug: TORadol 30 mg Route: IVP; Site: left hand; sg Disposition: 12:35 Chart complete. cp 13:18 Co-signature as Attending Physician, Theodore Singer MD. rn Disposition: 10/12/18 12:18 Discharged to Home. Impression: Headache, Anemia in chronic diseases classified elsewhere. - Condition is Stable. - Discharge Instructions: Anemia, Nonspecific, Migraine Headache. - Prescriptions for Ibuprofen 800 mg Oral Tablet - take 1 tablet by ORAL route every 8 hours As needed take with food; 30 tablet. Zofran 4 mg Oral Tablet - take 1 tablet by ORAL route every 12 hours As needed; 20 tablet. - Work release form, Medication Reconciliation Form, Thank You Letter, Antibiotic Education, Prescription Opioid Use form. - Follow up: Private Physician; When: 1 - 2 days; Reason: Recheck today's complaints. - Problem is new. - Symptoms have improved. Signatures: Dispatcher [employer] Matteo Grady RN RN sg Nieto, Roman, MD MD rn Smirch, Shelby, RN RN ss Page, Corey, PA PA cp Corrections: (The following items were deleted from the chart) 12:26 12:18 10/12/2018 12:18 Discharged to Home. Impression: Headache; Anemia in chronic sg diseases classified elsewhere. Condition is Stable. Forms are Medication Reconciliation Form, Thank You Letter, Antibiotic Education, Prescription Opioid Use. Follow up: Private Physician; When: 1 - 2 days; Reason: Recheck today's complaints. Problem is new. Symptoms have improved. cp
== END 2018-10-12 12:26 | disposition home or self-care (01) ==
LOC: ER 09:24
DX: R51 Headache (principal); D63.8 Anemia in other chronic diseases classified elsewhere; I10 Essential (primary) hypertension
CPT/HCPCS: 85025; 80048; 36415; 81025; 81003; 96375; 96374; 99284; J2765; J1100; J7030; J2405

== ENCOUNTER 2019-09-23 00:55 | Emergency (ER) | payer OTHER ==
--- OUTSIDE RECORDS SUMMARY | 2019-09-23 00:57 | XMS REPORT | Continuity of Care Document ---
:1965 Author Organization [facility] t Address [address] [place] [address] Care Team Providers Name Role Phone Salma Leigh Attending Clinician Lab, Adc Fam Pob I Attending Clinician Unavailable Problems Condition Condition Condition Status Onset Resolution Last Treating Co mments Source Name Details Category Date Date Treatment Clinician Date Pain in Pain in Problem Active [facility] left knee left knee Cruz rupal l [facility] Strain of Strain of Problem Active [facility] left knee, left knee, Mary kes - initial initial Memoria encounter encounter l [facility] Unspecifie Unspecifie Problem Active [facility] internal d internal Mary kes - derangemen derangemen Me moria t of left t of left l knee knee Out[facility] ent Clinics Left Left Problem Active [facility] - nerve pain nerve pain Me moria l [facility] Primary Primary Problem Active [facility] osteoarthr osteoarthr Mary kes - itis of itis of Memoria left knee left knee l [facility] Allergies, Adverse Reactions, Alerts This patient has no known allergies or adverse reactions. Medications Ordered Filled Start Stop Current Ordering Indication Dosage Frequency Signature Comments Components Source Medication Medication Date Date Medication? Clinician (SIG) Name Name Tramadol Tramadol Yes Epifanio [address] [facility] HCl HCl 4-24 Lobo as needed [facility] - 00:00: [facility] 00 l [facility] Hydrochloro Hydrochloro Yes Epifanio not [facility] thiazide thiazide Lobo defined [facility] - [facility]oria l [facility] Montelukast Montelukast Yes Epifanio not [facility] Sodium Sodium Lobo defined [facility] Metoprolol Metoprolol Yes Epifanio not [facility] Succinate Succinate Lobo defined [facility] [place] Losartan Losartan Yes Epifanio not [facility] Potassium Potassium Lobo defined [facility] Procedures This patient has no known procedures. Encounters Start End Encounter Admission Attending Care Care Encounter Source Date/Time Date/Time Type Type Clinicians Facility Department ID 2019-08-08 2019-08-08 Telephone [place], [facility] [id number] 00:00:00 00:00:00 [facility] [id number] [place] [id number] Professio [id number] nal [address] 2019-08-07 2019-08-07 [facility], [facility] [id number] 14:19:11 14:39:11 Visit [facility] [id number] [place] [id number] Professio [id number] nal 044 [address] 2019-06-02 2019-06-02 [facility] [id number] [facility] 10:00[facility]00 10:[facility] 2018-06-23 2018-06-23 [facility] [id number] [facility] 09:30:00 09:30:00 [facility] 2018-05-27 2018-05-27 [facility] [id number] [facility] 10:00:00 10:00:00 [facility] Results This patient has no known results.
--- OUTSIDE RECORDS SUMMARY | 2019-09-23 00:58 | XMS REPORT | Summary of Care ---
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 Bismuth Subsalicylate Take 1 tablet 30 tablet 1 06/30/2019 Active (PEPTO-BISMOL) 262 mg by mouth 4 tabletIndications: Loose (four) times stools daily as needed (diarrhea). [id number] Take 1 30 capsule 1 06/30/2019 Active jennie per capsule by capsuleIndications: mouth every 6 Migraine equivalent (six) hours syndrome as needed (migraine). nystatin/maalox/diphenhydr Take 5 mL by 120 mL 0 06/30/2019 Active AMINE/lidocaine 2 % mouth 4 viscous 1:1:1:1 Susp (four) times suspensionIndications: daily as Sore throat needed (Sore Throat). Gargle and spit, do not swallow documented as of this encounter (statuses as of 08/07/2019) Active Problems Problem Noted Date Migraine equivalent syndrome 06/30/2019 Fever, unspecified fever cause 06/30/2019 Loose stools 06/30/2019 Sore throat 06/30/2019 Exposure to SARS-associated coronavirus 06/30/2019 Suspected Covid-19 Virus Infection 06/30/2019 documented as of this encounter (statuses as of 08/07/2019) Social History Tobacco Use Types Packs/Day Years Used Date Never Smoker Smokeless Tobacco: Never Used Sex Assigned at Date Recorded Not on file Job Start Date Occupation Industry Not on file Not on file Not on file Travel History Travel Start Travel End No recent travel history available. COVID-19 Exposure Response Date Recorded In the last month, have you been in contact with Yes 08/07/2019 2:22 PM CDT someone who was confirmed or suspected to have Coronavirus / COVID-19? documented as of this encounter Last Filed Vital Signs Not on filedocumented in this encounter Plan of Treatment Name Type Priority Associated Diagnoses Order S chedule COVID-19 (PCR MOLECULAR LAB Routine Exposure to Covid -19 Expected: 08/07/2019, TESTING) Virus Expires: 2020 documented as of this encounter Results Not on filedocumented in this encounter Visit Diagnoses Diagnosis Exposure to Covid-19 Virus - Primary documented in this encounter documented as of this encounter
--- OUTSIDE RECORDS SUMMARY | 2019-09-23 00:58 | XMS REPORT | Summary of Care ---
:1965 Author Organization [facility] Address [address] [place] [address] Care Team Providers Name Role Phone NavinStephena Kiera Primary Care Provider Reason for Visit Reason Comments Headache X 2 days Sore Throat X 3 days Chills about a week Other loss of taste and smell Neck Pain X 2 days Headache Hypertension Encounter Details Date Type Department Care Team Description 06/30/2019 Urgent Care [facility] Family Eris Ny MD [address] [place] [address] Dr Keating [address] [place] [address] Migraine equivalent syndrome (Primary Dx ); [place] [address], Acute Care Clinic Fever, unspecified fever cause; [address] [place] [address] Yvonne mcintosh Loose stools; [place], [place] Sore throat; [address] Exposure to SARS-associated coronavirus; [phone] Suspected Covid -19 Virus Infection Allergies No Known Allergiesdocumented as of this encounter (statuses as of 06/30/2019) Medications Medication Sig Dispensed Refills Start Date End Date Status hydroCHLOROthiazide 12.5 Take 12.5 mg 0 04/16/2019 Active mg tablet by mouth every morning. Bismuth Subsalicylate Take 1 tablet 30 tablet 1 06/30/2019 Active (PEPTO-BISMOL) 262 mg by mouth 4 tabletIndications: Loose (four) times stools daily as needed (diarrhea). plcuieqmgvsti-iobt-ececopb Take 1 30 capsule 1 06/30/2019 Active [...] as of this encounter (statuses as of 06/30/2019) Active Problems Problem Noted Date Migraine equivalent syndrome 06/30/2019 Fever, unspecified fever cause 06/30/2019 Loose stools 06/30/2019 Sore throat 06/30/2019 Exposure to SARS-associated coronavirus 06/30/2019 Suspected Covid-19 Virus Infection 06/30/2019 documented as of this encounter (statuses as of 06/30/2019) Social History Tobacco Use Types Packs/Day Years Used Date Never Smoker Smokeless Tobacco: Never Used Sex Assigned at Date Recorded Not on file Job Start Date Occupation Industry Not on file Not on file Not on file Travel History Travel Start Travel End No recent travel history available. documented as of this encounter Last Filed Vital Signs Vital Sign Reading Time Taken Comments Blood Pressure 154/98 06/30/2019 12:14 PM CDT Pulse 59 06/30/2019 12:14 PM CDT Temperature 36.5 C (97.7 F) 06/30/2019 12:14 PM CDT Respiratory Rate 16 06/30/2019 12:14 PM CDT Oxygen Saturation 97% 06/30/2019 12:14 PM CDT Inhaled Oxygen Concentration - - Weight 81.6 kg (180 lb) 06/30/2019 12:14 PM CDT Height 160 cm (5' 3") 06/30/2019 12:14 PM CDT Body Mass Index 31.89 06/30/2019 12:14 PM CDT documented in this encounter Patient Instructions Patient InstructionsEdJw maria MD - 06/30/2019 12:40 PM CDTSelf Care Guidelines pending COVID-19 Screen Result - Increase fluid intake - Self quarantine until otherwise instructed - Call clinic/911 or go to ER should symptoms worsen or fail to improve - Sipping on warm water with lemon juice is effective at helping clear post nasal drip from back of throat -Turn on hot shower water, close the bathroom door, sit down, and inhale the steam -Use a vaporizer/humidifier to increase humidity in rooms -Use Tylenol as directed on bottle for pain/fever. - Jaylyn Rick Day/Night Cold and Flu Severe is a good multi symptom cold medication, however do nottake extra Tylenol in addition to these. -Sipping hot water or warm drinks may be more soothing to the nasal passages than ice cold drinks. -Avoid extremely cool and dry air. -Nasal saline rinses may provide temporary relief of congestion and help remove post nasal drip fromback of throat (use distilled water only) -Drinking 8 or more 8-oz glasses of water, juice, or noncaffeinated beverages daily may help to thinmucous secretions and replace fluid losses. -Home-care measures to relieve throat symptoms include warm saline gargles, which may reduce associated edema; lozenges; popsicles; and cold and slushy beverages. -An upright or semiupright posture, such as sleeping with the head and shoulders raised, may decrease cough related to pharyngeal secretions. Patient Education Preventing Migraine Headaches: Triggers The first step in preventing migraines is to learn what triggers them. You may then be able to control your triggers to avoid or reduce the severity of your migraines. Know your triggers Be aware that you may have more thanone trigger, and that some triggers may work together. Common migraine triggers include: Food and nutrition. Skipping meals or not drinking enough water can trigger headaches. So can certain foods, such as caffeine, chocolate, artificial sweeteners, monosodium glutamate (MSG),aged cheese, or sausage. Alcohol. Red wine and other alcoholic beverages are common migraine triggers. Chemicals. Scents, cleaning products, gasoline, glue, perfume, and paint can be triggers. So can tobacco smoke, including secondhand smoke. Emotions. Stress can trigger headaches or make them worse once they start. Sleep disruption. Staying up late, sleeping late, and traveling across time zones can disrupt your sleep cycle, triggering headaches. Hormones. Many women notice that migraines tend tohappen at a certain point in their menstrual cycle. control pills or hormone replacement therapy may also trigger migraines. Environment and weather. Air travel, changes in altitude, air pressure changes, hot sun, or bright or flashing lights can be triggers. Medicine overuse. Frequent use of pain medicines for headache pain can also cause a headache. This may also be called rebound headache. Control your triggers These are some of the things you can do to try to control triggers: Avoid triggers if you can. For example, stay clear of alcohol and foods that trigger your headaches. Use unscented household products. Keep regular sleep habits. Manage stress to help control emotional triggers. Change your behavior at times when triggers can't be avoided. For example, make sure to get enough rest and drink plenty of water while you're traveling. Make sure to carry a hat, sunglasses, and your medicines. Be alert for migraine symptoms, so you can treat a migraine early if it happens. [employer] reviewed this educational content on 06/30/201719990153-9429 [employer] [address] [place] [address], [place] [address]. All rights reserved. This information is not intended as a substitute for professional medical care. Always follow your healthcare professional's instructions. 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 Patient shares the same office space with her co-worker notes Vamshi hashortensiaen present for about a week, worsening in the last 24 hours Patient also reports loose stools, denies CP, palpitations, SOB or exercise intolerance. Allergies Erika has No Known Allergies. Medications Outpatient Medications Prior to Visit Medication Sig Dispense Refill hydroCHLOROthiazide 12.5 mg tablet Take 12.5 mg by mouth every morning. No facility-administered medications prior to visit. Histories History reviewed. No pertinent past medical history. History reviewed. No pertinent surgical history. Social History Socioeconomic History Marital status: Spouse name: Not on file Number of children: Not on file Years of education: Not on file Highest education level: Not on file Occupational History Not on file Social Needs Financial resource strain: Not on file Food insecurity: Worry: Not on file Inability: Not on file Transportation needs: Medical: Not on file Non-medical: Not on file Tobacco Use Smoking status: Never Smoker Smokeless tobacco: Never Used Substance and Sexual Activity Alcohol use: Not on file Drug use: Not on file Sexual activity: Not on file Lifestyle Physical activity: Days per week: Not on file Minutes per session: Not on file Stress: Not on file Relationships Social connections: Talks on phone: Not on file Gets together: Not on file Attends spiritism service: Not on file Active member of club or organization: Not on file Attends meetings of clubs or organizations: Not on file Relationship status: Not on file Intimate partner violence: Fear of current or ex partner: Not on file Emotionally abused: Not on file Physically abused: Not on file Forced sexual activity: Not on file Other Topics Concern Not on file Social History Narrative Not on file History reviewed. No pertinent family history. Review of Systems Constitutional: Positive for chills and fever. HENT: Positive for sore throat. Respiratory: Negative for cough, chest tightness and shortness of breath. Cardiovascular: Negative for chest pain and palpitations. Gastrointestinal: Positive for diarrhea. Negative for vomiting. Neurological: Positive for headaches. Vital Signs BP (!) 154/98 | Pulse 59 | Temp 36.5 C (97.7 F) (Oral) | Resp 16 | Ht 5' 3" (1.6 m) | Wt 180 lb (81.6 kg) | SpO2 97% | BMI 31.89 kg/m Physical Exam Constitutional: She is oriented to person, place, and time. No distress. HENT: Head: Normocephalic and atraumatic. Neck: Normal range of motion. Neck supple. No tracheal deviation present. Cardiovascular: Normal rate and regular rhythm. Pulmonary/Chest: Effort normal and breath sounds normal. Abdominal: Soft. Bowel sounds are normal. She exhibits no distension. There is tenderness. There is no guarding. Neurological: She is alert and oriented to person, place, and time. Skin: Skin is warm and dry. Capillary refill takes less than 2 seconds. Psychiatric: She has a normal mood and affect. Her behavior is normal. Nursing note and vitals reviewed. Assessment/Plan Migraine equivalent syndrome - phxxobruiscjp-cspm-ywdruyhwgf per capsule; Take 1 capsule by mouth every 6 (six) hours as needed (migraine). Dispense: 30 capsule; Refill: 1 Essential hypertension - BP elevated on arrival. Advised to consider adopting DASH diet plan - Continue HCTZ as prescribed Loose stools - Bismuth Subsalicylate (PEPTO-BISMOL) 262 mg tablet; Take 1 tablet by mouth 4 (four) times daily asneeded (diarrhea). Dispense: 30 tablet; Refill: 1 Sore throat - nystatin/maalox/diphenhydrAMINE/lidocaine 2 % viscous 1:1:1:1 Susp suspension; Take 5 mL by mouth 4 (four) times daily as needed (Sore Throat). Gargle and spit, do not swallow Dispense: 120 mL; Refill: 0 Suspected Covid-19 Virus Infection - Patient reports subjective fever at home. Possible exposure to coworker who tested positive for COVID-19 - CORONAVIRUS COVID-19 TESTING; Future - CORONAVIRUS COVID-19 TESTING Preventive Care: Medication reconciliation, patient education and anticipatory guidance completed. All questions and concerns addressed. AVS given, handout on DASH plan, Migraine and Self Care Guidelines pending COVID-19 Screen Result provided. Return if symptoms worsen or fail to improve. Jw Ny MD, MPH, AAMNVS Elementary Assistant Principal, Department of Family Medicine [facility] [address] [place] [address] [address] [place] [address] Office: 06/30/2019 12:54 PM documented in this encounter Plan of Treatment Health Maintenance Due Date Last Done Comments DTaP,Tdap,and Td Vaccines (1 - 1976 Tdap) PAP SMEAR 1986 Breast Cancer Screening 2005 (MAMMOGRAM) COLONOSCOPY 09/09/2015 Zoster Recombinant Vaccine 09/09/2015 (SHINGRIX) (1 of 2) INFLUENZA VACCINE (#1) 2018 PNEUMOCOCCAL 0-64 YEARS COMBINED Aged Out No longer eligible based on SERIES patient's age to complete this topic documented as of this encounter Procedures Procedure Name Priority Date/Time Associated Diagnosis Comme nts CORONAVIRUS COVID-19 Routine 06/30/2019 12:10 Fever, unspecifi ed Results for this TESTING PM CDT fever cause procedure are in Suspected Covid-19 the resul ts Virus Infection section. documented in this encounter Results CORONAVIRUS COVID-19 TESTING (06/30/2019 12:10 PM CDT) Pathologist Sig moe SARS-CoV-2 Not Detected Not Detected [facility] Specimen Swab - NASOPHARYNGEAL SWAB Narrative Performed At [facility] COVID-19 Assay is an isothermal nucleic [facility] acid amplification test intended for the qualitative detection of nucleic acid from SARS-CoV-2 viral RNA in nasopharyngeal (COMMUNITY OUTREACH SPECIALIST) specimens. It is used under Emergency Use Authorization (EUA) by FDA. The limit of detection (LOD) of the assay is 125 Genome Equivalents/mL. A positive result is indicative of the presence of SARS-CoV-2 RNA. Clinical correlation with patient history and other diagnostic information is necessary to determine patient infection status. A negative (Not Detected) result does not preclude SARS-CoV-2 infection. Clinical correlation with patient history and other diagnostic information should be used in patient management decisions. Invalid: Please collect a new specimen for repeat patient testing if clinically indicated. Performing Organization Address City/State/Zipcode Phone Number [facility] CLIA: [id number], [address] [place], [place] [address] documented in this encounter Visit Diagnoses Diagnosis Migraine equivalent syndrome - Primary Variants of migraine, not elsewhere clas sified, without mention of intractable migraine without mention of status migra inosus Fever, unspecified fever cause Loose stools Abnormal feces Sore throat Acute pharyngitis Exposure to SARS-associated coronavirus Suspected Covid-19 Virus Infection documented in this encounter documented as of this encounter
--- OUTSIDE RECORDS SUMMARY | 2019-09-23 00:58 | XMS REPORT | Summary of Care ---
:1965 Author Organization [facility] Address [address] [place] [address] Care Team Providers Name Role Phone Adilene Holden Primary Care Provider Reason for Visit Reason Comments Exposure Encounter Details Date Type Department Care Team Description 08/07/2019 Assistant Athletic Trainer Visit [facility] Salma Oropeza , WINDOWS MOBILE DEVELOPER [address] [place] [address] Exposure to Covid-19 Medicine - [facility], Adc Fam Pob I Virus (Primary Dx) [address] [place] [address] Allergies No Known Allergiesdocumented as of this encounter (statuses as of 08/07/2019) Medications Medication Sig Dispensed Refills Start Date End Date Status hydroCHLOROthiazide 12.5 Take 12.5 mg 0 04/16/2019 Active mg tablet by mouth every morning. Bismuth Subsalicylate Take 1 tablet 30 tablet 1 06/30/2019 Active (PEPTO-BISMOL) 262 mg by mouth 4 tabletIndications: Loose (four) times stools daily as needed (diarrhea). [id number] Take 1 30 capsule 1 06/30/2019 Active [...]
--- OUTSIDE RECORDS SUMMARY | 2019-09-23 00:58 | XMS REPORT | Summary of Care ---
:1965 Author Organization [facility] Address [address] [place] [address] Care Team Providers Name Role Phone Adilene Holden Primary Care Provider Reason for Visit Reason Comments Results Encounter Details Date Type Department Care Team Description 06/30/2019 Telephone [facility] Jw Ny MD Results [address] [place] [address] [place] [address] [place], [place] [address] [phone] Allergies No Known Allergiesdocumented as of this encounter (statuses as of 06/30/2019) Medications Medication Sig Dispensed Refills Start Date End Date Status hydroCHLOROthiazide 12.5 Take 12.5 mg 0 04/16/2019 Active mg tablet by mouth every morning. Bismuth Subsalicylate Take 1 tablet 30 tablet 1 06/30/2019 Active (PEPTO-BISMOL) 262 mg by mouth 4 tabletIndications: Loose (four) times stools daily as needed (diarrhea). [id number]-zoqm-rtjzkhy Take 1 30 capsule 1 06/30/2019 Active [...] filedocumented in this encounter Plan of Treatment Health [...] this topic documented as of this encounter Results Not on filedocumented in this encounter Insurance Payer Benefit Plan / Group Subscriber ID Effective Dates Phone Address Type NATALI HURST II [id number] 2019-Present HMO /PPO/POS documented as of this encounter
--- OUTSIDE RECORDS SUMMARY | 2019-09-23 00:59 | XMS REPORT | Summary of Care ---
:1965 Author Organization [facility] Address [address] [place] [address] Care Team Providers Name Role Phone Adilene Holden Primary Care Provider Reason for Visit Reason Comments TEST RESULTS Encounter Details Date Type Department Care Team Description 08/08/2019 Telephone [facility] Family Medicine Salma Boone FNP TEST RESULTS - [address] [facility] [address] [place] [address] [place] [address] [phone] Allergies No Known Allergiesdocumented as of this encounter (statuses as of 08/08/2019) Medications Medication Sig Dispensed Refills Start Date End Date Status hydroCHLOROthiazide 12.5 Take 12.5 mg 0 04/16/2019 Active mg tablet by mouth every morning. Bismuth Subsalicylate Take 1 tablet 30 tablet 1 06/30/2019 Active (PEPTO-BISMOL) 262 mg by mouth 4 tabletIndications: Loose (four) times stools daily as needed (diarrhea). dxomroankcagv-zktl-xgokqcw Take 1 30 capsule 1 06/30/2019 Active [...] as of this encounter (statuses as of 08/08/2019) Active Problems Problem Noted Date Migraine equivalent syndrome 06/30/2019 Fever, unspecified fever cause 06/30/2019 Loose stools 06/30/2019 Sore throat 06/30/2019 Exposure to SARS-associated coronavirus 06/30/2019 Suspected Covid-19 Virus Infection 06/30/2019 documented as of this encounter (statuses as of 08/08/2019) Social History Tobacco Use Types Packs/Day Years [...] DTaP,Tdap,and Td Vaccines (1 - 1976 Tdap) Depression Screening 1977 PAP SMEAR 1986 Breast Cancer Screening 2005 (MAMMOGRAM) COLONOSCOPY 09/09/2015 Zoster Recombinant Vaccine 09/09/2015 (SHINGRIX) (1 of 2) INFLUENZA VACCINE (Season Ended) 2019 PNEUMOCOCCAL 0-64 YEARS COMBINED Aged Out No longer eligible based on SERIES patient's age to complete this topic documented as of this encounter Results Not on filedocumented in this encounter Insurance Payer Benefit Plan / Group Subscriber ID Effective Dates Phone Address Type NATALI HURST II [id number] 2019-Present HMO /PPO/POS documented as of this encounter
[2019-09-23] MEDS ORDERED: dexAMETHasone 10 MG/ML VIAL ONE (01:50)
[2019-09-23] MEDS ORDERED: HYDROCODONE/CHLORPHEN 5 ML/OSYR ONE (01:50)
[2019-09-23 02:16] LABS: Absolute Lymphocytes (CBC) 1.7 K/uL (0.7-4.9); Basophils % 0.8 % (0-1.3); Hematocrit 34.9 % (36.0-45.0); Lymphocytes % 22.3 % (15.3-44.8); MPV 9.1 fL (7.6-11.3); RBC Red Blood Cell Count 3.97 M/uL (3.86-4.86)
[2019-09-23 02:25] LABS: Protime INR 1.16
[2019-09-23 02:41] LABS: ALT/SGPT 49 U/L (12-78); AST/SGOT 39 U/L (15-37); Albumin 3.3 g/dL (3.4-5.0); Alkaline Phosphatase 268 U/L (45-117); BUN Blood Urea Nitrogen 11 mg/dL (7-18); Bicarbonate 27 mmol/L (21-32); Bilirubin Direct 0.2 mg/dL (0-0.2); Bilirubin Total 0.6 mg/dL (0.2-1.0); Glucose Level 109 mg/dL (74-106); Magnesium 2.1 mg/dL (1.8-2.4); NT PRO-BNP 48 pg/mL (<125); Potassium 3.3 mmol/L (3.5-5.1); Protein, Total 8.2 g/dL (6.4-8.2); Sodium Level 142 mmol/L (136-145); Troponin (Emerg Dept Use Only) < 0.02 ng/mL (0.0-0.045)
[2019-09-23] MEDS ORDERED: AZITHROMYCIN 250 MG TAB ONE (03:36)
[2019-09-23] MEDS ORDERED: CEFTRIAXONE/SWI 1gm 1 GM/10 ML SYR ONE (03:37)
[2019-09-23] MEDS ORDERED: POTASSIUM 25 MEQ EFFERV TAB ONE (03:37)
--- NOTE | 2019-09-23 04:05 | EDPHYS ---
Physician Documentation [facility] Name: Erika Byrnes Age: 54 yrs Sex: Female : 1965 Arrival Date: 09/23/2019 Time: 00:56 Bed 16 Private MD: ED Physician Zenon Sanchez HPI: 09/22 01:34 This 54 yrs old Female presents to ER via Ambulatory with complaints of Covid cp +, Other, Shortness Of Breath. 01:34 The patient has shortness of breath with light activity. Onset: The symptoms/episode cp began/occurred last night. Duration: The symptoms are continuous. The patient's shortness of breath is aggravated by light activity, walking. Associated signs and symptoms: Pertinent positives: non-productive cough, Pertinent negatives: chest pain, diaphoresis, fever, hemoptysis, vomiting. 01:35 Patient reports she tested positive for COVID-19 on 09-12-2019 and was feeling better cp until becoming short of breath yesterday. 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 - Social history:: Smoking status: Patient denies any tobacco usage or history of. ROS: 01:37 Constitutional: Negative for body aches, chills, fever, poor PO intake. cp 01:37 Eyes: Negative for injury, pain, redness, and discharge. cp 01:37 ENT: Negative for ear pain, sore throat, difficulty swallowing, difficulty handling secretions. 01:37 Cardiovascular: Negative for chest pain, edema, palpitations. 01:37 Respiratory: Positive for cough, "sounds productive", shortness of breath, wheezing. 01:37 Abdomen/GI: Negative for abdominal pain, nausea, vomiting, and diarrhea. 01:37 Back: Negative for radiated pain. 01:37 Skin: Negative for rash. 01:37 Neuro: Negative for altered mental status, headache, weakness. 01:37 All other systems are negative. Exam: 01:45 Constitutional: The patient appears in no acute distress, alert, awake, cp non-diaphoretic, non-toxic, well developed, well nourished. 01:45 Head/Face: Normocephalic, atraumatic. cp 01:45 Eyes: Periorbital structures: appear normal, Conjunctiva: normal, no exudate, no injection, Sclera: no appreciated abnormality, Lids and lashes: appear normal, bilaterally. 01:45 ENT: External ear(s): are unremarkable, Nose: is normal, Mouth: Lips: moist, Oral mucosa: pink and intact, moist, Posterior pharynx: is normal, airway is patent. 01:45 Neck: ROM/movement: is normal, is supple, no meningismus, no nuchal rigidity. 01:45 Chest/axilla: Inspection: normal, Palpation: is normal, no crepitus, no tenderness. 01:45 Cardiovascular: Rate: normal, Rhythm: regular, Edema: is not appreciated, JVD: is not appreciated. 01:45 Respiratory: the patient does not display signs of respiratory distress, Respirations: labored breathing, is not present, intercostal retractions, are absent, shallow respirations, that is mild, Breath sounds: bronchial sounds, that are mild, are heard diffusely, stridor, is not appreciated, wheezing: is not appreciated. 01:45 Abdomen/GI: Exam negative for discomfort, distension, guarding, Inspection: abdomen appears normal. 01:45 Skin: no rash present. 01:45 Neuro: Orientation: to person, place \\T\\ time. Mentation: is normal, Motor: moves all fours, strength is normal. 02:07 ECG was reviewed by the Attending Physician. cp Vital Signs: 01:15 BP 120 / 74; Pulse 96; Resp 18; Temp 99.5; Pulse Ox 98% ; wh 02:18 BP 106 / 79; Pulse 97; Resp 18; Pulse Ox 97% on R/A; wh 03:30 BP 117 / 82; Pulse 87; Resp 22; Pulse Ox 97% on R/A; wh 04:19 BP 123 / 78; Pulse 79; Resp 18; Pulse Ox 96% on R/A; wh MDM: 01:18 Patient medically screened. cp 04:02 Differential diagnosis: Anemia Anxiety Reaction asthma, Bronchitis Chronic Obstructive mh7 Pulmonary Disease pneumonia, Pneumothorax pulmonary edema, Pulmonary Embolism. Data reviewed: vital signs, nurses notes, lab test result(s), CBC, electrolytes. Data interpreted: Pulse oximetry: on room air is 97 %. Interpretation: normal. Counseling: I had a detailed discussion with the patient and/or guardian regarding: the historical points, exam findings, and any diagnostic results supporting the discharge/admit diagnosis, the presence of at least one elevated blood pressure reading (>120/80) during this emergency department visit, lab results, radiology results, the need for outpatient follow up, to return to the emergency department if symptoms worsen or persist or if there are any questions or concerns that arise at home. Response to treatment: the patient's symptoms have resolved after treatment, the patient's blood pressure is in an acceptable range, mental status has returned to baseline, the patient no longer shows bradycardia, the patient is not short of breath, the patient is not tachycardic, the patient's pain is gone, the patient's temperature has normalized. 09/22 01:34 Order name: Basic Metabolic Panel; Complete Time: 02:43 cp 09/22 02:43 Interpretation: Normal except: K 3.3; GLUC 109; GFR 73. cp 09/22 01:34 Order name: CBC with Diff; Complete Time: 02:29 cp 09/22 02:29 Interpretation: Normal except: HGB 11.9; HCT 34.9. cp 09/22 01:34 Order name: LFT's; Complete Time: 02:43 cp 09/22 02:44 Interpretation: Normal except: AST 39; ALK 268; ALB 3.3; GLOB 4.9; A/G 0.7. cp 09/22 01:34 Order name: Magnesium; Complete Time: 02:43 cp 09/22 01:34 Order name: NT PRO-BNP; Complete Time: 02:43 cp 09/22 01:34 Order name: PT-INR; Complete Time: 02:39 cp 09/22 01:34 Order name: Troponin (emerg Dept Use Only); Complete Time: 02:43 cp 09/22 01:34 Order name: XRAY Chest (1 view) cp 09/22 01:34 Order name: DD; Complete Time: 02:39 09/22 02:39 Interpretation: Abnormal: D-DIMER 641. 09/22 02:39 Order name: CT Chest For PE Angio 09/22 01:34 Order name: EKG; Complete Time: 01:34 cp 09/22 01:34 Order name: Cardiac monitoring; Complete Time: 02:21 09/22 01:34 Order name: EKG - Nurse/Tech; Complete Time: 02:21 cp 09/22 01:34 Order name: IV Saline Lock; Complete Time: 02:21 cp 09/22 01:34 Order name: Labs collected and sent; Complete Time: 02:21 09/22 01:34 Order name: O2 Per Protocol; Complete Time: 02:21 09/22 01:34 Order name: O2 Sat Monitoring; Complete Time: 02:21 cp EC:07 Rate is 94 beats/min. Rhythm is regular. LA interval is normal. QRS interval is normal. cp QT interval is normal. Interpreted by me. Reviewed by me. Administered Medications: 02:00 Drug: Decadron - Dexamethasone 6 mg Route: IVP; Site: right antecubital; 03:34 Follow up: Response: No adverse reaction; Marked relief of symptoms 02:00 Drug: Tussionex Pennkinetic ER 5 ml Route: PO; 03:34 Follow up: Response: No adverse reaction; Marked relief of symptoms 03:33 Drug: Zithromax 500 mg Route: PO; 04:18 Follow up: Response: No adverse reaction 03:33 Drug: Rocephin - (cefTRIAXone) 1 grams {Note: Given Rocephin 10 ml IVP per prtotocol.} Route: IVPB; Infused Over: 30 mins; Site: right antecubital; 04:18 Follow up: Response: No adverse reaction; IV Status: Completed infusion 03:34 Drug: Potassium Effervescent Tablet 50 mEq Route: PO; 04:18 Follow up: Response: No adverse reaction Disposition: 04:05 Co-signature as Attending Physician, Zenon Sanchez MD. mh7 Disposition: 09/23/19 04:04 Discharged to Home. Impression: Pneumonia, COVID 19. - Condition is Stable. - Discharge Instructions: Community-Acquired Pneumonia, Adult, [id number], COVID-19. - Prescriptions for Zithromax Z- Berny 250 mg Oral Tablet - take 1 tablet by ORAL route as directed for 5 days Day 1 - take two (2) tablets one time. Day 2, 3, 4 , 5 take one (1) tablet once daily.; 6 tablet. Prednisone 20 mg Oral Tablet - take 2 tablet by ORAL route once daily for 5 days; 10 tablet. Albuterol Sulfate 90 mcg/actuation - inhale 1-2 puff by INHALATION route every 4-6 hours; 1 Inhaler. - Medication Reconciliation Form, Thank You Letter, Antibiotic Education, Prescription Opioid Use form. - Follow up: Private Physician; When: 1 - 2 days; Reason: Worsening of condition, Recheck today's complaints, Continuance of care, Re-evaluation by your physician. - Problem is an ongoing problem. - Symptoms have improved. Signatures: Dispatcher [employer] EDMS Gen Samuels PA PA cp Habalo, Winsy wh Calcote, Vanessa, RN RN vc Holmes, Maurice, MD MD [facility] Corrections: (The following items were deleted from the chart) 04:04 04:04 09/23/2019 04:04 Discharged to Home. Impression: Pneumonia; COVID 19. Condition mh7 is Stable. Forms are Medication Reconciliation Form, Thank You Letter, Antibiotic Education, Prescription Opioid Use. Follow up: Private Physician; When: 1 - 2 days; Reason: Worsening of condition, Recheck today's complaints, Continuance of care, Re-evaluation by your physician. [facility] 04:20 04:04 09/23/2019 04:04 Discharged to Home. Impression: Pneumonia; COVID 19. Condition is Stable. Forms are Medication Reconciliation Form, Thank You Letter, Antibiotic Education, Prescription Opioid Use. Follow up: Private Physician; When: 1 - 2 days; Reason: Worsening of condition, Recheck today's complaints, Continuance of care, Re-evaluation by your physician. Problem is an ongoing problem. Symptoms have improved. 7 11:23 01:35 Patient reports she tested positive for COVID-19 on 09-12-2019 and was feeling cp better until becoming short of breath last yesterday. cp
--- NOTE | 2019-09-23 04:05 | ER ---
Nurse's Notes [facility] Name: Erika Byrnes Age: 54 yrs Sex: Female : 1965 Arrival Date: 09/23/2019 Time: 00:56 Bed 16 Private MD: Diagnosis: Pneumonia;COVID 19 Presentation: 09/22 01:03 Chief complaint: Patient states: "I tested positive on September 11, in [place]. Tonight I vc just started wheezing and I feel more short of breath when I move or lay down.". Coronavirus screen: Patient reports a cough. Patient reports shortness of breath or difficulty breathing. Patient reports a measured and/or subjective temperature greater than 100.4F. Patient denies travel on a cruise ship or to a country the [facility] currently lists as an affected area. Patient denies contact with known and/or suspected case of COVID-19. Prior COVID test collected on: [place] on September 11. Ebola Screen: No symptoms or risks identified at this time. Risk Assessment: Do you want to hurt yourself or someone else? Patient reports no desire to harm self or others. Onset of symptoms is unknown. 01:03 Method Of Arrival: Ambulatory vc 01:03 Acuity: JAIRO 3 vc 01:15 Initial Sepsis Screen: Does the patient meet any 2 criteria? HR > 90 bpm. Does the wh patient have a suspected source of infection? Yes: Other: Covid Positive. Triage Assessment: 01:08 General: Appears in no apparent distress. uncomfortable, ill, Behavior is calm, vc cooperative, appropriate for age. Pain: Denies pain. Respiratory: Reports shortness of breath cough that is labored breathing Onset: The symptoms/episode began/occurred Tested COVID positive on September 11, tonight the symptoms are worse, the patient has moderate shortness of breath. 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 - Social history:: Smoking status: Patient denies any tobacco usage or history of. Screenin:10 Abuse screen: Denies threats or abuse. Nutritional screening: No deficits noted. vc Tuberculosis screening: No symptoms or risk factors identified. Fall Risk None identified. Assessment: 01:15 General: Appears in no apparent distress. Behavior is calm, cooperative, appropriate wh for age. Pain: Denies pain. Neuro: Level of Consciousness is awake, alert, obeys commands, Oriented to person, place, time, situation, Appropriate for age. Cardiovascular: Heart tones S1 S2 Rhythm is regular. Respiratory: Reports shortness of breath cough that is Airway is patent Respiratory effort is even, unlabored, Respiratory pattern is regular, symmetrical, Breath sounds are clear bilaterally. GI: Abdomen is flat, non-distended. : No signs and/or symptoms were reported regarding the genitourinary system. EENT: No signs and/or symptoms were reported regarding the EENT system. Derm: Skin is intact, is healthy with good turgor, Skin is pink, warm \\T\\ dry. normal. Musculoskeletal: Circulation, motion, and sensation intact. 02:50 Reassessment: Patient appears in no apparent distress at this time. No changes from previously documented assessment. Patient and/or family updated on plan of care and expected duration. Pain level reassessed. Patient is alert, oriented x 3, equal unlabored respirations, skin warm/dry/pink. 04:18 Reassessment: Patient appears in no apparent distress at this time. No changes from previously documented assessment. Patient and/or family updated on plan of care and expected duration. Pain level reassessed. Patient is alert, oriented x 3, equal unlabored respirations, skin warm/dry/pink. Vital Signs: 01:15 BP 120 / 74; Pulse 96; Resp 18; Temp 99.5; Pulse Ox 98% ; wh 02:18 BP 106 / 79; Pulse 97; Resp 18; Pulse Ox 97% on R/A; wh 03:30 BP 117 / 82; Pulse 87; Resp 22; Pulse Ox 97% on R/A; wh 04:19 BP 123 / 78; Pulse 79; Resp 18; Pulse Ox 96% on R/A; ED Course: 00:56 Patient arrived in ED. cl3 01:04 Triage completed. vc 01:06 Gen Samuels PA is PHCP. cp 01:06 Zenon Sanchez MD is Attending Physician. cp 01:15 Patient has correct armband on for positive identification. Bed in low position. Call light in reach. Side rails up X 1. monitor car operator on. Pulse ox on. NIBP on. 01:30 Inserted saline lock: 20 gauge in right antecubital area, using aseptic technique. Blood collected. 01:34 Nori Curry is Primary Nurse. 02:03 XRAY Chest (1 view) In Process Unspecified. EDMS 02:18 Arm band placed on right wrist. 02:43 Notified ED physician of a critical lab result(s). DDimer elevated. 03:24 CT Chest For PE Angio In Process Unspecified. EDMS 04:19 No provider procedures requiring assistance completed. IV discontinued, intact, bleeding controlled, No redness/swelling at site. Administered Medications: 02:00 Drug: Decadron - Dexamethasone 6 mg Route: IVP; Site: right antecubital; 03:34 Follow up: Response: No adverse reaction; Marked relief of symptoms 02:00 Drug: Tussionex Pennkinetic ER 5 ml Route: PO; 03:34 Follow up: Response: No adverse reaction; Marked relief of symptoms 03:33 Drug: Zithromax 500 mg Route: PO; 04:18 Follow up: Response: No adverse reaction 03:33 Drug: Rocephin - (cefTRIAXone) 1 grams {Note: Given Rocephin 10 ml IVP per prtotocol.} Route: IVPB; Infused Over: 30 mins; Site: right antecubital; 04:18 Follow up: Response: No adverse reaction; IV Status: Completed infusion 03:34 Drug: Potassium Effervescent Tablet 50 mEq Route: PO; 04:18 Follow up: Response: No adverse reaction Outcome: 04:04 Discharge ordered by . mh7 04:19 Discharged to home ambulatory. 04:19 Condition: stable 04:19 Discharge instructions given to patient, Instructed on discharge instructions, follow up and referral plans. medication usage, POC Demonstrated understanding of instructions, follow-up care, medications, POC Prescriptions given X 3. 04:20 Patient left the ED. Signatures: Dispatcher [employer] EDMS Gen Samuels PA PA cp Habalo, Winsy Radhika Millan3 Griselda Umaña RN RN Zenon Husain MD MD mh7
[2019-09-23 04:27] VITALS: TEMP 99.5
[2019-09-23 04:31] VITALS: BP 123/78; O2SAT 96
--- NOTE | 2019-09-23 08:27 | RAD REPORT ---
EXAM DESCRIPTION: RAD - Chest Single View - 09/23/2019 2:03 am CLINICAL HISTORY: Cough;SOB, history of positive COVID test September 11 COMPARISON: August 2011 TECHNIQUE: AP portable chest image was obtained 09/23/2019 2:03 am . FINDINGS: Lung volumes are low. Interstitial and minimal alveolar opacities are present in the upper right lung field. Interstitial pattern throughout all lung root is increased over the comparison. There is minimal patchy airspace opacification in the upper left lung field and medial right lung bas e. No central pulmonary edema pattern. Heart size and vasculature within normal limits for shallow in spiration portable exam. No measurable pleural effusion and no pneumothorax. No acute bony abnormalit y seen. No acute aortic findings suspected. IMPRESSION: Mild bilateral pneumonia pattern. Peripheral distribution of the infiltrates would be consistent with a COVID-19 pneumonia.
--- NOTE | 2019-09-23 15:25 | EKG ---
Test Date: 2019-09-23 Test Time: 01:59:16 Psychiatric Rn: HI MEASUREMENT RESULTS: Intervals: Rate: 94 NJ: 142 QRSD: 88 QT: 364 QTc: 455 [place]: P: 47 NJ: 142 QRS: 32 T: 48 INTERPRETIVE STATEMENTS: Normal sinus rhythm Possible Anterior infarct, age undetermined Abnormal ECG No previous ECG available for comparison Electronically Signed On 09-23-19 15:24:01 CDT by Maximus Ivy
--- NOTE | 2019-09-26 08:47 | RAD REPORT ---
EXAM DESCRIPTION: CT - Chest For Pe Angio - 09/23/2019 7:05 am CLINICAL HISTORY: Cough;SOB COMPARISON: None. TECHNIQUE: CT CHEST ANGIOGRAPHY WITH IV CONTRAST on 09/23/2019 2:39 AM CDT. MIPS reconstructions were generated. This exam was performed according to our departmental dose-optimization program, which includes autom ated exposure control, adjustment of the mA and/or kV according to patient size and/or use of iterati ve reconstruction technique. MIP images were generated. FINDINGS: Thoracic aorta is normal in course and caliber without aneurysm or dissection. Pulmonary a rteries are adequately opacified without acute or chronic filling defects. The heart is normal in size. There is no pericardial effusion. Intrathoracic lymph nodes are not enla rged. There is no pleural effusion, pleural thickening or pneumothorax. Central airways are patent. There i s patchy nodular airspace disease within the posterior aspects of the mid and upper lungs. There are no acute abnormalities within the limited images of the upper abdomen. There are no acute osseous findings. No suspicious bony lesions. IMPRESSION: Suspect bilateral pneumonia. No aortic dissection or aneurysm. No pulmonary embolus. Electronically signed by: Dariel Costello MD 09/23/2019 3:36 AM CDT Due to temporary technical issues with the PACS/Fluency reporting system, reports are being signed by the in house radiologist without review as a courtesy to ensure prompt reporting. The interpreting r adiologist is fully responsible for the content of the report.
== END 2019-09-23 04:20 | disposition home or self-care (01) ==
LOC: ER 00:55
DX: U07.1 COVID-19 (principal); J18.9 Pneumonia, unspecified organism; I10 Essential (primary) hypertension
CPT/HCPCS: 96365; 93005; 85025; 80048; 36415; 83735; 85610; 85379; 80076; 84484; 83880; 71275; 71045; 96375; 99284; Q9967; J1100; J0696

== ENCOUNTER 2019-10-02 18:39 | Observation (INO) | payer OTHER ==
--- OUTSIDE RECORDS SUMMARY | 2019-10-02 18:42 | XMS REPORT | Continuity of Care Document ---
:1965 Author Organization [facility] t Address [address] [place] [address] Care Team Providers Name Role Phone Salma Leigh Attending Clinician Lab, Adc Fam Pob I Attending Clinician Unavailable Problems Condition Condition Condition Status Onset Resolution Last Treating Co mments Source Name Details Category Date Date Treatment Clinician Date Pain in Pain in Problem Active [facility] left knee left knee Cruz rupal [facility] Strain of Strain of Problem Active [facility] left knee, left knee, Mary kes - initial initial [facility]oria encounter encounter l [facility] Unspecifie Unspecifie Problem Active [facility] d internal d internal Mary kes - derangemen derangemen Me moria t of left t of left l knee knee [facility] Left Left Problem [facility] sciatic sciatic [facility] - nerve pain nerve pain Me moria l [facility] Primary Primary Problem Active [facility] osteoarthr osteoarthr Mary kes - itis of itis of Memoria left knee left knee l [facility] Allergies, Adverse Reactions, Alerts This patient has no known allergies or adverse reactions. Medications Ordered Filled Start Stop Current Ordering Indication Dosage Frequency Signature Comments Components Source Medication Medication Date Date Medication? Clinician (SIG) Name Name Tramadol Tramadol Yes Epifanio [address] [facility] HCl HCl 4-24 Lobo as needed [facility] - 00:00: [facility] 00 l [facility] Hydrochloro Hydrochloro Yes Epifanio not [facility] thiazide thiazide Lobo defined [facility] - [facility] Montelukast Montelukast Yes Epifanio not [facility] Sodium Sodium Lobo defined [facility] Metoprolol Metoprolol Yes Epifanio not [facility] Succinate Succinate Lobo defined [facility] Losartan Losartan Yes Epifanio not [facility] Potassium Potassium Lobo defined [facility] Procedures This patient has no known procedures. Encounters Start End Encounter Admission Attending Care Care Encounter Source Date/Time Date/Time Type Type Clinicians Facility Department ID 2019-08-08 2019-08-08 Telephone [place], [facility] [[email or web address] [id number] 00:00:00 00:00:00 DNsolution [id number] Deport [id number] Professio [phone] nal [address] 2019-08-07 2019-08-07 Home Health [facility], [facility] [id number] 14:19:11 14:39:11 Visit [facility] [id number] Deport [id number] Professio [id number] nal [address] 2019-06-02 2019-06-02 [facility] [id number] [facility] 10:00:00 10:00:00 [facility] 2018-06-23 2018-06-23 [facility] [id number] [facility] 09[facility]30:00 09:30:00 [facility] 2018-05-27 2018-05-27 [facility] [id number] [facility] 10:00:00 10:00:00 [facility] Results This patient has no known results.
[2019-10-02 20:00] LABS: Absolute Lymphocytes (CBC) 2.3 K/uL (0.7-4.9); Basophils % 0.2 % (0-1.3); Hematocrit 35.4 % (36.0-45.0); Lymphocytes % 31.4 % (15.3-44.8); MPV 9.7 fL (7.6-11.3); RBC Red Blood Cell Count 3.95 M/uL (3.86-4.86)
[2019-10-02 20:08] LABS: Protime INR 0.97
[2019-10-02] MEDS ORDERED: METHYLPREDNISOLONE 125 MG INJ ONE (20:18)
[2019-10-02 20:19] LABS: ALT/SGPT 45 U/L (12-78); AST/SGOT 27 U/L (15-37); Albumin 3.4 g/dL (3.4-5.0); Alkaline Phosphatase 158 U/L (45-117); BUN Blood Urea Nitrogen 11 mg/dL (7-18); Bicarbonate 28 mmol/L (21-32); Bilirubin Direct < 0.1 mg/dL (0-0.2); Bilirubin Total 0.2 mg/dL (0.2-1.0); Glucose Level 93 mg/dL (74-106); Magnesium 2.4 mg/dL (1.8-2.4); NT PRO-BNP 87 pg/mL (<125); Potassium 3.8 mmol/L (3.5-5.1); Protein, Total 7.8 g/dL (6.4-8.2); Sodium Level 143 mmol/L (136-145); Troponin (Emerg Dept Use Only) < 0.02 ng/mL (0.0-0.045)
[2019-10-02] MEDS ORDERED: ASPIRIN 81 MG CHEWABLE TABLET ONE (20:19)
[2019-10-02] MEDS ORDERED: NA CHLORIDE 0.9% 1,000 ML ONE (20:19)
--- NOTE | 2019-10-02 21:42 | RAD REPORT ---
EXAM DESCRIPTION: Raquel Single View10/02/2019 8:11 pm CLINICAL HISTORY: Chest pain COMPARISON: September 23, 2019 FINDINGS: Bilateral pulmonary opacities is partially resolved The heart is normal size IMPRESSION: Partial resolution in a mild bilateral pneumonia
--- NOTE | 2019-10-02 22:57 | ER ---
Nurse's Notes [facility] Name: Erika Byrnes Age: 54 yrs Sex: Female : 1965 Arrival Date: 10/02/2019 Time: 18:40 Bed 16 Private MD: Diagnosis: Pulmonary embolism without acute cor pulmonale-right upper and middle lobe Presentation: 10/01 18:50 Chief complaint: Patient states: "I had COVID + September 09. I was seen here after that ss and they told me I have COVID pneumonia, I started to get better, but now as of yesterday it is getting worse again." C/o shortness of breath, cough and chest pressure. Coronavirus screen: cough unrelated to allergies, difficulty breathing, Client reports previous positive COVID test result. Date of collection: September 10, 2019. Ebola Screen: Patient denies exposure to infectious person. Patient denies travel to an Ebola-affected area in the 21 days before illness onset. Initial Sepsis Screen: Does the patient meet any 2 criteria? No. Patient's initial sepsis screen is negative. Does the patient have a suspected source of infection? No. Patient's initial sepsis screen is negative. Risk Assessment: Do you want to hurt yourself or someone else? Patient reports no desire to harm self or others. Onset of symptoms was September 10, 2019. 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 - Social history:: Smoking status: Patient denies any tobacco usage or history of. Screenin:10 Abuse screen: Denies threats or abuse. Denies injuries from another. Nutritional rr5 screening: No deficits noted. Tuberculosis screening: No symptoms or risk factors identified. Fall Risk IV access (20 points). Total Tyler Fall Scale indicates No Risk (0-24 pts). Assessment: 19:20 General: Appears in no apparent distress. uncomfortable, Behavior is calm, cooperative, rr5 appropriate for age. Pain: Complains of pain in chest Pain currently is 6 out of 10 on a pain scale. Quality of pain is described as aching, Pain began gradually, Is intermittent. 19:20 Neuro: Level of Consciousness is awake, alert, obeys commands, Oriented to person, rr5 place, time, situation. Cardiovascular: Reports chest pain, Capillary refill < 3 seconds Patient's skin is warm and dry. Respiratory: Reports shortness of breath Airway is patent Respiratory effort is even, unlabored, Respiratory pattern is regular, symmetrical. GI: Abdomen is round. : No signs and/or symptoms were reported regarding the genitourinary system. EENT: No signs and/or symptoms were reported regarding the EENT system. Derm: Skin is intact, is healthy with good turgor, Skin temperature is warm. Musculoskeletal: Circulation, motion, and sensation intact. Capillary refill < 3 seconds. 20:11 Reassessment: Reassessment: ara from laboratory called D dimer 1070, ED provider rr5 aware. 20:11 Reassessment: Patient appears in no apparent distress at this time. No changes from rr5 previously documented assessment. Patient is alert, oriented x 3, equal unlabored respirations, skin warm/dry/pink. 21:20 Reassessment: Patient appears in no apparent distress at this time. Patient is alert, rr5 oriented x 3, equal unlabored respirations, skin warm/dry/pink. no complaints made. 22:30 Reassessment: Patient appears in no apparent distress at this time. Patient is alert, rr5 oriented x 3, equal unlabored respirations, skin warm/dry/pink. no complaints made Patient denies pain at this time. 23:55 Reassessment: Patient appears in no apparent distress at this time. Patient is alert, rr5 oriented x 3, equal unlabored respirations, skin warm/dry/pink. snacks given. 10/02 00:35 Reassessment: pt vomiting, Gen Page PA notified new orders received pt medicated see bb APR. Vital Signs: 10/01 18:50 BP 129 / 80; Pulse 93; Resp 17; Temp 98.2(O); Pulse Ox 98% on R/A; Weight 79.38 kg; ss Height 5 ft. 3 in. (160.02 cm); Pain 6/10; 20:20 BP 112 / 67; Pulse 80; Resp 17; Pulse Ox 98% ; rr5 21:23 BP 119 / 74; Pulse 64; Resp 19; Pulse Ox 100% ; rr5 22:30 BP 119 / 74; Pulse 69; Resp 15; Pulse Ox 100% ; rr5 23:30 BP 126 / 85; Pulse 75; Resp 20; Temp 98.5; Pulse Ox 99% ; rr5 08 00:49 BP 136 / 85; Pulse 60; Resp 16; Pulse Ox 99% on R/A; rr5 07:28 BP 110 / 65; Pulse 59; Resp 20; Pulse Ox 94% on R/A; Pain 0/10; jr10 10/01 18:50 Body Mass Index 31.00 (79.38 kg, 160.02 cm) ss Chester Coma Score: 10/01 19:20 Eye Response: spontaneous(4). Verbal Response: oriented(5). Motor Response: obeys rr5 commands(6). Total: 15. ED Course: 18:40 Patient arrived in ED. fj1 18:52 Triage completed. ss 18:53 Arm band placed on right wrist. ss 19:07 Juan C Corcoran, RN is Primary Nurse. rr5 19:10 Patient has correct armband on for positive identification. Bed in low position. Call rr5 light in reach. Side rails up X2. monitoring specialist on. Pulse ox on. NIBP on. 19:12 Gen Samuels PA is PHCP. cp 19:12 Funmilayo Pablo MD is Attending Physician. cp 19:50 Inserted saline lock: 20 gauge in right antecubital area, using aseptic technique. oe Blood collected. 19:53 Jonathan Riley MD is Attending Physician. cp 20:11 XRAY Chest (1 view) In Process Unspecified. EDMS 21:23 No provider procedures requiring assistance completed. Patient maintains SpO2 rr5 saturation greater than 95% on room air. 22:00 CT Chest For PE Angio In Process Unspecified. EDMS 22:55 Funmilayo Bustamante MD is Hospitalizing Provider. cp 10/02 00:53 Patient admitted, IV remains in place. intact, No redness/swelling at site. rr5 01:58 Primary Nurse role handed off by Juan C Corcoran RN mt2 01:58 Charmaine Varela, MAHNAZ is Primary Nurse. mt2 07:29 No apparent distress. Awaiting bed assignment. jr10 Administered Medications: 10/01 20:14 Drug: NS 0.9% 1000 ml Route: IV; Rate: 1000 ml/hr; Site: right antecubital; 21:15 Follow up: Response: No adverse reaction; IV Status: Completed infusion; IV Intake: rr5 1000ml 20:14 Drug: SOLU-Medrol 60 mg Route: IVP; Site: right antecubital; 21:15 Follow up: Response: No adverse reaction rr5 20:15 Drug: Aspirin Chewable Tablet 324 mg Route: PO; 21:11 Follow up: Response: No adverse reaction rr5 22:58 Drug: Lovenox 1 mg/kg Route: Sub-Q; Site: right lower abdomen; rr5 10/02 00:35 Drug: Zofran (Ondansetron) 4 mg Route: IVP; Site: right antecubital; 00:49 Drug: Tussionex Pennkinetic ER 5 ml Route: PO; rr5 Intake: 10/01 21:15 IV: 1000ml; Total: 1000ml. rr5 Outcome: 22:56 Decision to Hospitalize by Provider. 10/02 00:53 Admitted to ER Hold. Please see [facility] for further documentation. rr5 Condition: stable Instructed on the need for admit. 07:29 Admitted to Tele accompanied by [facility], via stretcher, room 416, with chart, Report jr10 called to MAHNAZ Adkins 07:29 Condition: stable 07:29 Instructed on the need for admit. 08:02 Patient left the ED. jr10 Signatures: Dispatcher [employer] EDMS No Rendon RN RN bb Amarilis Philippe RN RN ss Page, Corey, DON PA Yosvany Hassan Winsy Juan C Corcoran, RN RN rr5 Gus Connell [facility] Charmaine Varela RN RN mt2 Adrianne Cox RN RN jr10 Corrections: (The following items were deleted from the chart) 10/01 21:05 20:48 Reassessment: rr5 rr5
--- NOTE | 2019-10-02 22:57 | EDPHYS ---
Physician Documentation [facility] Name: Erika Byrnes Age: 54 yrs Sex: Female : 1965 Arrival Date: 10/02/2019 Time: 18:40 Bed 16 Private MD: ED Physician Jonathan Riley HPI: 10/01 19:00 This 54 yrs old Female presents to ER via Ambulatory with complaints of Chest cp Pain, Breathing Difficulty. 19:00 The patient has shortness of breath with light activity. cp 19:00 Onset: The symptoms/episode began/occurred yesterday, and became worse today. Duration: cp The symptoms are continuous, and are steadily getting worse. Associated signs and symptoms: Pertinent positives: productive cough, chest heaviness, Pertinent negatives: dizziness, fever, syncope. Severity of symptoms: in the emergency department the symptoms are unchanged despite home interventions. Patient reports being diagnosed with COVID-19 on 09-10-2019 and feeling better up until yesterday when chest heaviness, SOB started. 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 - Social history:: Smoking status: Patient denies any tobacco usage or history of. ROS: 19:05 Constitutional: Negative for body aches, chills, fever, poor PO intake. cp 19:05 Eyes: Negative for injury, pain, redness, and discharge. cp 19:05 ENT: Negative for ear pain, sore throat, difficulty swallowing, difficulty handling cp secretions. 19:05 Cardiovascular: Positive for chest pain, Negative for edema, palpitations. 19:05 Respiratory: Positive for cough, shortness of breath, Negative for wheezing. 19:05 Abdomen/GI: Negative for abdominal pain, nausea, vomiting, and diarrhea. 19:05 Neuro: Negative for altered mental status, headache, syncope, weakness. 19:05 All other systems are negative. Exam: 19:10 Constitutional: The patient appears in no acute distress, alert, awake, cp non-diaphoretic, non-toxic, well developed, well nourished. 19:10 Head/Face: Normocephalic, atraumatic. cp 19:10 Eyes: Periorbital structures: appear normal, Conjunctiva: normal, no exudate, no injection, Sclera: no appreciated abnormality, Lids and lashes: appear normal, bilaterally. 19:10 ENT: External ear(s): are unremarkable, Nose: is normal, Mouth: Lips: moist, Oral mucosa: moist, Posterior pharynx: is normal, airway is patent, no erythema, no exudate. 19:10 Neck: ROM/movement: is normal, is supple, without pain, no range of motions limitations, no nuchal rigidity. 19:10 Chest/axilla: Inspection: normal, Palpation: is normal, no crepitus, no tenderness. 19:10 Cardiovascular: Rate: normal, Rhythm: regular, Heart sounds: murmur, not appreciated, Edema: is not appreciated, JVD: is not appreciated. 19:10 Respiratory: the patient does not display signs of respiratory distress, Respirations: labored breathing, that is mild, intercostal retractions, are absent, tachypnea, is not appreciated, Breath sounds: decreased breath sounds, are not appreciated, stridor, is not appreciated, wheezing: is not appreciated. 19:10 Abdomen/GI: Inspection: abdomen appears normal, Palpation: abdomen is soft and non-tender, in all quadrants. 19:10 Back: pain, is absent, ROM is normal. 19:10 Skin: no rash present. 19:10 Neuro: Orientation: to person, place \T\ time. Mentation: is normal, Cerebellar function: is grossly normal, Motor: moves all fours, strength is normal, Sensation: is normal. 19:45 ECG was reviewed by the Attending Physician. cp Vital Signs: 18:50 BP 129 / 80; Pulse 93; Resp 17; Temp 98.2(O); Pulse Ox 98% on R/A; Weight 79.38 kg; ss Height 5 ft. 3 in. (160.02 cm); Pain 6/10; 20:20 BP 112 / 67; Pulse 80; Resp 17; Pulse Ox 98% ; rr5 21:23 BP 119 / 74; Pulse 64; Resp 19; Pulse Ox 100% ; rr5 22:30 BP 119 / 74; Pulse 69; Resp 15; Pulse Ox 100% ; rr5 23:30 BP 126 / 85; Pulse 75; Resp 20; Temp 98.5; Pulse Ox 99% ; rr5 08 00:49 BP 136 / 85; Pulse 60; Resp 16; Pulse Ox 99% on R/A; rr5 07:28 BP 110 / 65; Pulse 59; Resp 20; Pulse Ox 94% on R/A; Pain 0/10; jr10 10/01 18:50 Body Mass Index 31.00 (79.38 kg, 160.02 cm) ss Jimmy Coma Score: 10/01 19:20 Eye Response: spontaneous(4). Verbal Response: oriented(5). Motor Response: obeys rr5 commands(6). Total: 15. MDM: 19:18 Patient medically screened. cp 20:00 Differential diagnosis: Anemia asthma, Bronchitis pneumonia, Pneumothorax pulmonary cp edema, Pulmonary Embolism Unstable Angina. 22:55 Data reviewed: vital signs, nurses notes, lab test result(s), EKG, radiologic studies, cp CT scan, plain films, I have discussed the patient's presentation/case with the attending Emergency Department Physician; and as a result, I will admit patient. 22:55 Counseling: I had a detailed discussion with the patient and/or guardian regarding: the cp historical points, exam findings, and any diagnostic results supporting the discharge/admit diagnosis, lab results, radiology results, the need for further work-up and treatment in the hospital. Response to treatment: the patient's symptoms have mildly improved after treatment. Physician consultation: Funmilayo Bustamante MD was called at 22:55, was contacted at 22:55, regarding admission, to the telemetry unit. patient's condition. 10/01 19:20 Order name: Basic Metabolic Panel; Complete Time: 20:36 cp 10/01 22:31 Interpretation: Normal except: CL 110; GFR 84. cp 10/01 19:20 Order name: CBC with Diff; Complete Time: 20:36 cp 10/01 22:31 Interpretation: Normal except: HCT 35.4. cp 10/01 19:20 Order name: LFT's; Complete Time: 20:36 cp 08/ 19:20 Order name: Magnesium; Complete Time: 20:36 cp 08/ 19:20 Order name: NT PRO-BNP; Complete Time: 20:36 cp 08/ 19:20 Order name: PT-INR; Complete Time: 20:36 cp 08/ 19:20 Order name: Troponin (emerg Dept Use Only); Complete Time: 20:36 cp 10/01 19:20 Order name: D-Dimer; Complete Time: 20:36 cp 08/ 20:36 Interpretation: Abnormal: D-DIMER 1070. cp 08/ 00:21 Order name: CBC with Automated Diff EDMS 10/02 00:21 Order name: Comprehensive Metabolic Panel EDMS 10/02 00:21 Order name: Lactate EDMS 10/02 00:21 Order name: Lipid Profile EDMS 10/02 00:21 Order name: Magnesium EDMS 10/02 00:21 Order name: NT PRO-BNP EDMS 10/01 19:20 Order name: XRAY Chest (1 view); Complete Time: 22:26 cp / 22:26 Interpretation: Report review. cp 10/01 20:37 Order name: CT Chest For PE Angio cp 10/02 00:21 Order name: Phosphorus EDMS 10/02 00:21 Order name: Protime (+INR) EDMS 10/02 00:21 Order name: PTT, Activated Partial Thromb EDMS 10/02 00:21 Order name: Troponin I EDMS / 00:25 Order name: C-Reactive Protein EDMS / 00:25 Order name: D-Dimer EDMS 10/02 00:25 Order name: Ferritin EDMS / 00:25 Order name: Lactic Dehydrogenase EDMS 10/02 00:25 Order name: Procalcitonin EDMS 10/02 05:22 Order name: D-Dimer EDMS 10/02 05:26 Order name: Lactic Dehydrogenase EDMS 10/02 05:26 Order name: C-Reactive Protein EDMS / 05:26 Order name: Ferritin EDMS / 19:20 Order name: EKG; Complete Time: 19:20 cp / 19:20 Order name: Cardiac monitoring; Complete Time: 20:18 cp / 19:20 Order name: EKG - Nurse/Tech; Complete Time: 20:18 cp 10/01 19:20 Order name: IV Saline Lock; Complete Time: 20:18 cp 10/01 19:20 Order name: Labs collected and sent; Complete Time: 20:18 cp 10/01 19:20 Order name: O2 Per Protocol; Complete Time: 20:18 cp 10/01 19:20 Order name: O2 Sat Monitoring; Complete Time: 20:18 cp 10/01 22:51 Order name: Misc. Order: bed rest; Complete Time: 22:52 cp 10/02 00:21 Order name: CONS Physician Consult EDMS 10/02 00:21 Order name: Heart Healthy EDMS EC:45 Rate is 74 beats/min. Rhythm is regular. RI interval is normal. QRS interval is normal. cp QT interval is normal. T waves are Inverted in lead III. Interpreted by me. Reviewed by me. Administered Medications: 20:14 Drug: NS 0.9% 1000 ml Route: IV; Rate: 1000 ml/hr; Site: right antecubital; 21:15 Follow up: Response: No adverse reaction; IV Status: Completed infusion; IV Intake: rr5 1000ml 20:14 Drug: SOLU-Medrol 60 mg Route: IVP; Site: right antecubital; 21:15 Follow up: Response: No adverse reaction rr5 20:15 Drug: Aspirin Chewable Tablet 324 mg Route: PO; 21:11 Follow up: Response: No adverse reaction rr5 22:58 Drug: Lovenox 1 mg/kg Route: Sub-Q; Site: right lower abdomen; rr5 10/02 00:35 Drug: Zofran (Ondansetron) 4 mg Route: IVP; Site: right antecubital; bb 00:49 Drug: Tussionex Pennkinetic ER 5 ml Route: PO; rr5 Disposition: 08:36 Co-signature as Attending Physician, Jonathan Riley MD I agree with the assessment and 4 plan of care. Disposition: 10/02/19 22:56 Hospitalization ordered by Funmilayo Bustamante for Inpatient Admission. Preliminary diagnosis is Pulmonary embolism without acute cor pulmonale - right upper and middle lobe. - Bed requested for Telemetry/MedSurg (Inpatient). - Status is Inpatient Admission. jr10 - Condition is Stable. - Problem is new. - Symptoms have improved. Signatures: Dispatcher [employer] EDMS Unique Lindsay RN RN mw No Rendon, RN RN Amarilis Finney, RN RN Gen Marcano PA PA cp Habalo, Winsy wh Wadley, Terrence, MD MD [id number] Juan C Corcoran, RN RN rr5 Adrianne Cox, RN RN jr10 Corrections: (The following items were deleted from the chart) 10/01 23:05 22:56 Hospitalization Ordered by Funmilayo Bustamante MD for Inpatient Admission. Preliminary diagnosis is Pulmonary embolism without acute cor pulmonale - right upper and middle lobe. Bed requested for Telemetry/MedSurg (Inpatient). Status is Inpatient Admission. Condition is Stable. Problem is new. Symptoms have improved. cp 10/02 05:44 10/01 23:05 10/02/2019 22:56 Hospitalization Ordered by Funmilayo Bustamante MD for Inpatient mw Admission. Preliminary diagnosis is Pulmonary embolism without acute cor pulmonale - right upper and middle lobe. Bed requested for [facility] ER HOLD. Status is Inpatient Admission. Condition is Stable. Problem is new. Symptoms have improved. mw 10/02 08:02 05:44 10/02/2019 22:56 Hospitalization Ordered by Funmilayo Bustamante MD for Inpatient jr10 Admission. Preliminary diagnosis is Pulmonary embolism without acute cor pulmonale - right upper and middle lobe. Bed requested for Telemetry/MedSurg (Inpatient). Status is Inpatient Admission. Condition is Stable. Problem is new. Symptoms have improved.
[2019-10-02] MEDS ORDERED: ENOXAPARIN 80 MG/0.8 ML SQ ONE (23:04)
[2019-10-03] MEDS ORDERED: ONDANSETRON 4 MG/2 ML VIAL IV PRN (00:11)
[2019-10-03] MEDS ORDERED: ACETAMINOPHEN 500 MG TAB PO PRN (00:11)
[2019-10-03] MEDS ORDERED: HYDROCODONE/CHLORPHEN 5 ML/OSYR ONE (00:58)
[2019-10-03 01:39] VITALS: BMI 30.9
[2019-10-03 05:09] LABS: Absolute Lymphocytes (CBC) 1.2 K/uL (0.7-4.9); Basophils % 0.4 % (0-1.3); Lymphocytes % 17.7 % (15.3-44.8); MPV 10.2 fL (7.6-11.3); RBC Red Blood Cell Count 3.43 M/uL (3.86-4.86)
[2019-10-03 05:12] LABS: Protime INR 1.08
[2019-10-03 05:25] LABS: ALT/SGPT 35 U/L (12-78); AST/SGOT 20 U/L (15-37); Albumin 2.9 g/dL (3.4-5.0); Alkaline Phosphatase 134 U/L (45-117); BUN Blood Urea Nitrogen 12 mg/dL (7-18); Bicarbonate 26 mmol/L (21-32); Bilirubin Total 0.2 mg/dL (0.2-1.0); Ferritin 48.3 ng/mL (8-388); Glucose Level 151 mg/dL (74-106); HDL Cholesterol 44 mg/dL (40-60); LDL Cholesterol, Calculated 103 (<130); Magnesium 2.3 mg/dL (1.8-2.4); NT PRO-BNP 81 pg/mL (<125); Phosphorus 1.5 mg/dL (2.5-4.9); Potassium 3.8 mmol/L (3.5-5.1); Protein, Total 6.9 g/dL (6.4-8.2); Sodium Level 141 mmol/L (136-145); Troponin I < 0.02 ng/mL (0.0-0.045)
--- NOTE | 2019-10-03 06:11 | P.HP ---
Certification for Inpatient Patient admitted to: Observation With expected LOS: <2 Midnights Patient will require the following post-hospital care: None Practitioner: I am a practitioner with admitting privileges, knowledge of patient current condition, hospital course, and medical plan of care. Services: Services provided to patient in accordance with Admission requirements found in Title 42 Section 412.3 of the Code of Federal Regulations Patient History Date of Service: 10/03/19 Reason for admission: PULMONARY EMBOLISM/COVID-19 PNEUMONIA History of Present Illness: Patient is a 54-year-old female with a history of COVID-19 Pneumonia. She was diagnosed many weeks ago. However, she feels like she has been getting more short of breath. She was found to have hypoxemia so she came into the Emergency room . In the Emergency room , she was found to have pulmonary embolism. She will be admitted for observation. She is oxygenating better. We got her on blood thinners. If she does well possible discharge in the next 24-48 hours. Also, no evidence of RV strain noted on CT scan. Spoke with pulmonary are ready and they are anticipating discharge as they do not feel echocardiogram is necessary at this time. Allergies No Known Allergies Allergy (Verified 06/11/15 12:07) Home Medications: Losartan Potassium [Cozaar*] 50 mg PO DAILY 06/11/15 Albuterol Inhaler [Ventolin Inhaler*] 2 puff IH Q6H PRN #1 hfa.aer.ad 10/03/19 Apixaban [Eliquis] 5 mg PO BID #60 tablet 10/03/19 Apixaban [Eliquis] 10 mg PO BID #14 tab.ds.pk 10/03/19 Benzonatate [Tessalon Perle*] 200 mg PO TID PRN #30 cap 10/03/19 - Past Medical/Surgical History Has patient received pneumonia vaccine in the past: No Diabetic: No -: hypertension -: COVID-19 -: breast cyst removed -: patrice chahal - Family History Father Medical History: Heart disease, Cancer, Other (see notes) Notes: multiple sclerosis Mother Medical History: Hypertension, Diabetes, Cancer - Social History Smoking Status: Unknown if ever smoked Alcohol use: Yes CD- Drugs: No Caffeine use: Yes Review of Systems 10-point ROS is otherwise unremarkable Physical Examination - Vital Signs Temperature: 98 F Blood Pressure: 109/71 Pulse: 59 Respirations: 16 Pulse Ox (%): 93 - Physical Exam General: Alert, In no apparent distress, Oriented x3 HEENT: Atraumatic, PERRLA, Mucous membr. moist/pink, EOMI, Sclerae nonicteric Neck: Supple, 2+ carotid pulse no bruit, No LAD, Without JVD or thyroid abnormality Respiratory: Clear to auscultation bilaterally, Normal air movement Cardiovascular: Regular rate/rhythm, Normal S1 S2, No murmurs Gastrointestinal: Normal bowel sounds, No tenderness Musculoskeletal: No tenderness Integumentary: No rashes Neurological: Normal gait, Normal speech, Normal strength at 5/5 x4 extr, Normal tone, Normal affect Lymphatics: No axilla or inguinal lymphadenopathy - Studies Laboratory Data (last 24 hrs) 10/02/19 19:44: PT 11.4, INR 0.97 10/02/19 19:44: WBC 7.2, Hgb 12.0, Hct 35.4 L, Plt Count 342 10/02/19 19:44: Sodium 143, Potassium 3.8, BUN 11, Creatinine 0.72, Glucose 93, Magnesium 2.4, Total Bilirubin 0.2, AST 27, ALT 45, Alkaline Phosphatase 158 H Assessment & Plan - Problems (Diagnosis) (1) Pneumonia due to COVID-19 virus Status: Acute (2) Pulmonary embolism Status: Acute Qualifiers: Acute cor pulmonale presence: unspecified - Plan 1. Continue with IV antibiotics 2. Anti coagulation with Lovenox 3. Repeat chest x-ray if symptoms are progressively worsening 4. O2 per protocol 5. Pulmonary consultation 6. O2 per protocol 7. GI and DVT prophylaxis Discharge Plan: Home Plan to discharge in: 24 Hours - Advance Directives Does patient have a Living Will: Yes Does patient have a Durable POA for Healthcare: Yes - Code Status/Comfort Care Code Status Assessed: Yes Code Status: Full Code Critical Care: No Time Spent Managing PTS Care (In Minutes): 40
[2019-10-03] MEDS: POTASS/SODIUM PHOSPHATE 1 PKT POWD.PACK PO SCH ×3 (08:51→10:39)
[2019-10-03] MEDS ORDERED: CEFTRIAXONE/SWI 1gm 1 GM/10 ML SYR IV SCH (09:00)
[2019-10-03] MEDS ORDERED: ENOXAPARIN 80 MG/0.8 ML SQ SCH (09:00)
[2019-10-03] MEDS ORDERED: AZITHROMYCIN IV 500 MG in NA CHLORIDE 0.9% 250 ML IVPB SCH (09:00)
[2019-10-03] MEDS ORDERED: CEFTRIAXONE 1 GM/NS 50 ML 1 GM/50 ML BAG IV SCH (09:00)
[2019-10-03 09:41] VITALS: O2SAT 96
[2019-10-03] MEDS ORDERED: BENZONATATE 100 MG CAP PO PRN (09:48)
[2019-10-03] MEDS ORDERED: GUAIFENESIN/CODEINE 5ML UCUP PO SCH (09:48)
--- NOTE | 2019-10-03 09:49 | RAD REPORT ---
EXAM DESCRIPTION: CT - Chest For Pe Angio - 10/03/2019 3:32 am CLINICAL HISTORY: SOB TECHNIQUE: Contiguous axial images obtained through the chest during angiographic phase following th e uneventful administration of IV contrast. Sagittal and coronal reformatted images were provided. SC P reformatted images were provided. This exam was performed according to our departmental dose-optimization program, which includes autom ated exposure control, adjustment of the mA and/or kV according to patient size and/or use of iterati ve reconstruction technique. COMPARISON: 09/23/2019 FINDINGS: Diagnostic quality: There is good opacification of the pulmonary arterial tree. Motion art ifact degrades image quality and limits evaluation of segmental and subsegmental vessels. Lungs: Interval decrease in degree of patchy multifocal reticulonodular opacities throughout the lung s bilaterally. Airways are patent. Pleura: No effusion. No pneumothorax. Heart and pericardium: The heart is mildly enlarged. No evidence for right heart strain. No pericardi al effusion. Mediastinum and charlie: No pathologically enlarged lymph nodes. Lower neck and chest wall: Unremarkable Vessels: Subsegmental right upper lobe pulmonary arterial filling defect (series 401 image 42). Segme ntal and subsegmental right middle lobe pulmonary arterial filling defects (series 401 images 53 thro ugh 57). Minimal atherosclerotic disease. No thoracic aortic aneurysm. Upper abdomen: Postsurgical changes of the stomach. Bones: Mild multilevel spondylosis. No acute fracture. IMPRESSION: 1. Right upper and middle lobe pulmonary embolic disease. 2. Interval decrease in degree of bilateral multifocal infiltrates. 3. Other findings as above. THIS REPORT CONTAINS FINDINGS THAT MAY BE CRITICAL TO PATIENT CARE: The findings were verbally discu ssed via telephone conference with DON Ledezma, on 10/02/2019 10:29 PM CDT. The results were acknowl edged and understood. Electronically signed by: Vianca Webster MD 10/02/2019 10:30 PM CDT Due to temporary technical issues with the PACS/Fluency reporting system, reports are being signed by the in house radiologist without review as a courtesy to ensure prompt reporting. The interpreting r adiologist is fully responsible for the content of the report.
--- NOTE | 2019-10-03 12:29 | P.CNS ---
Date of Consult: 10/03/19 Chief Complaint: PULMONARY EMBOLISM/COVID-19 PNEUMONIA History of Present Illness: Patient is a 54 years of age was diagnosed with coronal virus infection on September 09 as told that she had pneumonia getting better then got worse again started complaining of dyspnea for the past 2 days in addition to cough was admitted from the emergency room with a diagnosis of pulmonary embolism she is feeling fine has dyspnea on exertion Allergies No Known Allergies Allergy (Verified 06/11/15 12:07) Home Medications: Losartan Potassium [Cozaar] 50 mg PO DAILY 06/11/15 - Past Medical/Surgical History Diabetic: No -: hypertension -: covid 19 -: breasy cyst removed -: tummy fela - Family History Father Medical History: Heart disease, Cancer, Other (see notes) Notes: multiple sclerosis Mother Medical History: Hypertension, Diabetes, Cancer - Social History Smoking Status: Unknown if ever smoked Alcohol use: Yes CD- Drugs: No Caffeine use: Yes Review of Systems 10-point ROS is otherwise unremarkable Physical Examination Temp Pulse Resp BP Pulse Ox 98 F 59 16 109/71 93 10/03/19 09:49 10/03/19 09:49 10/03/19 09:49 10/03/19 09:49 10/03/19 09:49 General: Alert, Oriented x3 Laboratory Data (last 24 hrs) 10/02/19 19:44: PT 11.4, INR 0.97 10/02/19 19:44: WBC 7.2, Hgb 12.0, Hct 35.4 L, Plt Count 342 10/02/19 19:44: Sodium 143, Potassium 3.8, BUN 11, Creatinine 0.72, Glucose 93, Magnesium 2.4, Total Bilirubin 0.2, AST 27, ALT 45, Alkaline Phosphatase 158 H - Problems (1) Pulmonary embolism Current Visit: Yes Status: Acute Plan: Patient is 54 years of age admitted with pulmonary embolism recent history of corcoran virus infection patient is hemodynamically stable room-air sat is 96% can be discharged home for dose of anticoagulation either Xarelto or Eliquis as per dosage instructions this is probably precipitated by corcoran virus infection so 3-6 months of anticoagulation should be adequate follow-up with me in 1 or 2 weeks blood pressure is also stable Qualifiers: Acute cor pulmonale presence: unspecified
[2019-10-05 06:36] VITALS: BP 109/71; TEMP 98
--- NOTE | 2019-10-05 06:39 | P.DS ---
Discharge Date: 10/03/19 Disposition: ROUTINE DISCHARGE Discharge Condition: GOOD Reason for Admission: PULMONARY EMBOLISM/COVID-19 PNEUMONIA Consultations: Pulmonary - Problems (1) Pneumonia due to COVID-19 virus Status: Acute (2) Pulmonary embolism Status: Acute Qualifiers: Acute cor pulmonale presence: unspecified Brief History of Present Illness: Patient is a 54-year-old female with a history of COVID-19 Pneumonia. She was diagnosed many weeks ago. However, she feels like she has been getting more short of breath. She was found to have hypoxemia so she came into the Emergency room . In the Emergency room , she was found to have pulmonary embolism. She will be admitted for observation. She is oxygenating better. We got her on blood thinners. If she does well possible discharge in the next 24-48 hours. Also, no evidence of RV strain noted on CT scan. Spoke with pulmonary are ready and they are anticipating discharge as they do not feel echocardiogram is necessary at this time. Hospital Course: Patient is clinically doing well and is stable for discharge home at this time. Outpatient follow with pulmonary. Vital Signs/Physical Exam: Temp Pulse Resp BP Pulse Ox 98 F 59 16 109/71 93 10/05/19 06:38 10/05/19 06:38 10/05/19 06:38 10/05/19 06:38 10/05/19 06:38 General: Alert, In no apparent distress, Oriented x3 Laboratory Data at Discharge: WBC 6.6 K/uL (4.3-10.9) 10/03/19 04:35 Hgb 10.6 g/dL (12.0-15.0) L 10/03/19 04:35 Hct 31.0 % (36.0-45.0) L 10/03/19 04:35 Plt Count 314 K/uL (152-406) 10/03/19 04:35 PT 12.7 SECONDS (9.5-12.5) H 10/03/19 04:35 INR 1.08 10/03/19 04:35 APTT 47.4 SECONDS (24.3-36.9) H 10/03/19 04:35 Sodium 141 mmol/L (136-145) 10/03/19 04:35 Potassium 3.8 mmol/L (3.5-5.1) 10/03/19 04:35 BUN 12 mg/dL (7-18) 10/03/19 04:35 Creatinine 0.62 mg/dL (0.55-1.3) 10/03/19 04:35 Glucose 151 mg/dL (74-106) H 10/03/19 04:35 Phosphorus 1.5 mg/dL (2.5-4.9) L 10/03/19 04:35 Magnesium 2.3 mg/dL (1.8-2.4) 10/03/19 04:35 Total Bilirubin 0.2 mg/dL (0.2-1.0) 10/03/19 04:35 AST 20 U/L (15-37) 10/03/19 04:35 ALT 35 U/L (12-78) 10/03/19 04:35 Alkaline Phosphatase 134 U/L (45-117) H 10/03/19 04:35 Troponin I < 0.02 ng/mL (0.0-0.045) 10/03/19 04:35 Triglycerides 74 mg/dL (<150) 10/03/19 04:35 Cholesterol 162 mg/dL (<200) 10/03/19 04:35 HDL Cholesterol 44 mg/dL (40-60) 10/03/19 04:35 Cholesterol/HDL Ratio 3.68 10/03/19 04:35 Home Medications: Losartan Potassium [Cozaar*] 50 mg PO DAILY 06/11/15 Albuterol Inhaler [Ventolin Inhaler*] 2 puff IH Q6H PRN #1 hfa.aer.ad 10/03/19 Apixaban [Eliquis] 5 mg PO BID #60 tablet 10/03/19 Apixaban [Eliquis] 10 mg PO BID #14 tab.ds.pk 10/03/19 Benzonatate [Tessalon Perle*] 200 mg PO TID PRN #30 cap 10/03/19 New Medications: Apixaban [Eliquis] 10 mg PO BID #14 tab.ds.pk Apixaban [Eliquis] 5 mg PO BID #60 tablet Benzonatate [Tessalon Perle*] 200 mg PO TID PRN #30 cap PRN Reason: Cough Albuterol Inhaler [Ventolin Inhaler*] 2 puff IH Q6H PRN #1 hfa.aer.ad PRN Reason: Shortness Of Breath Patient Discharge Instructions: -OK TO DC IV AND DC HOME. -FOLLOW-UP WITH PCP IN 1-2 WEEKS. -FOLLOW-UP WITH PULMONARY IN 1-2 WEEKS. -PLEASE MAKE SURE ALL DIAGNOSTIC STUDIES ARE AVAILABLE AND HAVE BEEN REVIEWED WITH PATIENT PRIOR TO DISCHARGE. -RETURN TO THE ER IF SYMPTOMS WORSENS. -CALL DR. GARRISON AT [phone] IF ANY QUESTIONS REGARDING HOSPITAL STAY. 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
== END 2019-10-03 15:15 | disposition home or self-care (01) ==
LOC: ER 18:39 → ERHOLD 10-03 01:18 → 4TH 10-03 07:28
PROVIDERS: ADMIT Hospitalist; ATTEND Hospitalist
DX: U07.1 COVID-19 (principal); J12.89 Other viral pneumonia; I26.99 Other pulmonary embolism without acute cor pulmonale; I10 Essential (primary) hypertension; Z79.899 Other long term (current) drug therapy
CPT/HCPCS: 96361; 93005; 85025 ×2; 80048; 36415; 83735 ×2; 83615; 84100; 85610 ×2; 80061; 85379 ×2; 80076; 83605; 85730; 84484 ×2; 82728; 80053; 84145; 83880 ×2; 86140; 71275; 71045; 96375; 96372; 96374; 99285; U0002; Q9967; J0696; J7030; J2930; J2405; G0378 ×2; J0456; J7050

== ENCOUNTER 2019-11-28 11:26 | Emergency (ER) | payer OTHER ==
--- OUTSIDE RECORDS SUMMARY | 2019-11-28 11:31 | XMS REPORT | Continuity of Care Document ---
:1965 Author Organization [facility] t Address [address] [place] [address] Care Team Providers Name Role Phone Salma Leigh Attending Clinician Lab, Adc Fam Pob I Attending Clinician Unavailable Problems Condition Condition Condition Status Onset Resolution Last Treating Co mments Source Name Details Category Date Date Treatment Clinician Date Pain in Pain in Problem Active [facility] knee left knee [facility] Strain of Strain of Problem Active [facility] left knee, left knee, Mary kes - initial initial [facility] encounter encounter [facility] Unspecifie Unspecifie Problem Active [facility] d internal d internal Mary kes - derangemen derangemen Me moria t of left t of left l knee knee [facility] ent Clinics Left Left Problem Active [facility] sciatic sciatic [facility] - nerve pain nerve pain [facility] moria [facility] Primary Primary Problem Active [facility] osteoarthr osteoarthr Mary kes - itis of itis of Memoria left knee left knee l [facility] Allergies, Adverse Reactions, Alerts This patient has no known allergies or adverse reactions. Medications Ordered Filled Start Stop Current Ordering Indication Dosage Frequency Signature Comments Components Source Medication Medication Date Date Medication? Clinician (SIG) Name Name Tramadol Tramadol Yes Epifanio [address] [facility] HCl HCl 4-24 Lobo as needed [facility] - 00:[facility]: [facility] 00 [facility] Hydrochloro Hydrochloro Yes Epifanio not [facility] thiazide thiazide Lobo defined [facility] - [facility] Montelukast Montelukast Yes Epifanio not [facility] Sodium Sodium Lobo defined [facility] Metoprolol Metoprolol Yes Epifanio not [facility] Succinate Succinate Lobo defined [facility] Losartan Losartan Yes Epifanio not [facility] Potassium Potassium Lobo defined [facility] Procedures This patient has no known procedures. 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, [facility] [id number] 14:19:11 14:39:11 Visit [facility] [id number] [place] [id number] Professio [phone] nal [address] One 2019-06-02 2019-06-02 [facility] [id number] [facility] [address] 10:00:00 10:00:00 [facility] 2018-06-23 2018-06-23 [facility] [id number] [address] 09:30:00 09:30:00 t [facility] 2018-05-27 2018-05-27 [facility] [id number] 10:00:00 10:00:00 t [facility] Results This patient has no known results.
[2019-11-28] MEDS ORDERED: NS KCL 20MEQ 1,000 ML IV ONE (12:20)
[2019-11-28 12:26] LABS: Absolute Lymphocytes (CBC) 2.5 K/uL (0.7-4.9); Hematocrit 36.9 % (36.0-45.0); Lymphocytes % 43.7 % (15.3-44.8); MPV 9.9 fL (7.6-11.3)
[2019-11-28 12:46] LABS: BUN Blood Urea Nitrogen 10 mg/dL (7-18); Bicarbonate 34 mmol/L (21-32); Glucose Level 99 mg/dL (74-106); Sodium Level 143 mmol/L (136-145)
[2019-11-28 12:50] LABS: Potassium 2.6 mmol/L (3.5-5.1)
[2019-11-28] MEDS ORDERED: POTASSIUM 25 MEQ EFFERV TAB ONE (13:22)
--- NOTE | 2019-11-28 13:30 | ER ---
Nurse's Notes [facility] Name: Erika Byrnes Age: 54 yrs Sex: Female : 1965 Arrival Date: 11/28/2019 Time: :28 Bed 15 Private MD: Diagnosis: Hypokalemia Presentation: 11/27 11:45 Chief complaint: Patient states: Dr Lynch called and told me my potassium is 2.6 and jl7 sent me here. Coronavirus screen: Client denies travel out of the [place] in the last 14 days. At this time, the client does not indicate any symptoms associated with coronavirus-19. Ebola Screen: No symptoms or risks identified at this time. Initial Sepsis Screen: Does the patient meet any 2 criteria? No. Patient's initial sepsis screen is negative. Does the patient have a suspected source of infection? No. Patient's initial sepsis screen is negative. Risk Assessment: Do you want to hurt yourself or someone else? Patient reports no desire to harm self or others. Onset of symptoms is unknown. Care prior to arrival: None. 11:45 Method Of Arrival: Ambulatory [facility] 11:45 Acuity: JAIRO 3 jl7 Triage Assessment: 11:47 General: Appears in no apparent distress. uncomfortable, Behavior is calm, cooperative, jl7 appropriate for age. Pain: Denies pain. 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 - Social history:: Smoking status: Patient denies any tobacco usage or history of. Screenin:50 Abuse screen: Denies threats or abuse. Denies injuries from another. Nutritional bp screening: No deficits noted. Tuberculosis screening: No symptoms or risk factors identified. Fall Risk None identified. Assessment: 11:50 General: SEE TRIAGE NOTE. bp 12:29 Reassessment: Patient appears in no apparent distress at this time. Patient and/or ca1 family updated on plan of care and expected duration. Pain level reassessed. Patient is alert, oriented x 3, equal unlabored respirations, skin warm/dry/pink. 13:36 Reassessment: PT D/C HOME AMBULATORY, DX WITH HYPOKALEMIA. bp Vital Signs: 11:45 BP 131 / 88; Pulse 55; Resp 17; Temp 97.6; Pulse Ox 99% ; Weight 79.38 kg; Height 5 ft. jl7 3 in. (160.02 cm); Pain 0/10; 12:29 BP 127 / 83; Pulse 52; Resp 20 S; Pulse Ox 100% on R/A; ca1 13:36 BP 141 / 83; Pulse 53; Resp 18; Temp 97.5; Pulse Ox 100% ; bp 11:45 Body Mass Index 31.00 (79.38 kg, 160.02 cm) jl7 ED Course: 11:28 Patient arrived in ED. as 11:47 Triage completed. jl7 11:47 Arm band placed on right wrist. jl7 11:50 Geremias Sánchez, RN is Primary Nurse. bp 11:50 Patient has correct armband on for positive identification. Bed in low position. Call bp light in reach. Side rails up X2. 11:56 Melissa Luciano FNP-C [facility]. kb 11:56 Gen Jackson MD is Attending Physician. kb 12:14 Initial lab(s) drawn, by ED staff, sent to lab. Inserted saline lock: 22 gauge in right ca1 forearm, using aseptic technique. ,using aseptic technique. by MAHNAZ Archuleta Blood collected. 13:37 No provider procedures requiring assistance completed. IV discontinued, intact, bp bleeding controlled, No redness/swelling at site. Pressure dressing applied. Administered Medications: 12:16 Drug: NS 0.9% with KCl 20 mEq/L 1000 ml Route: IV; Rate: calculated rate; Site: right ca1 forearm; 13:38 Follow up: IV Status: Completed infusion; IV Intake: 1000ml bp 13:20 Drug: Potassium Effervescent Tablet 50 mEq Route: PO; bp 13:38 Follow up: Response: No adverse reaction bp Intake: 13:38 IV: 1000ml; Total: 1000ml. bp Outcome: 13:30 Discharge ordered by . kb 13:37 Discharged to home ambulatory. bp 13:37 Condition: stable 13:37 Discharge instructions given to patient, Instructed on discharge instructions, follow up and referral plans. Demonstrated understanding of instructions, follow-up care. 13:42 Patient left the ED. bp Signatures: Melissa Luciano FNP-C FNP-Elvi Jean-Baptiste Jahala RN RN jl7 Geremias Sánchez RN RN bp Amparo Diaz RN RN ca1
--- NOTE | 2019-11-28 13:30 | EDPHYS ---
Physician Documentation [facility] Name: Erika Byrnes Age: 54 yrs Sex: Female : 1965 Arrival Date: 11/28/2019 Time: 11:28 Bed 15 Private MD: ED Physician Gen Jackson HPI: 11/27 13:51 This 54 yrs old Female presents to ER via Ambulatory with complaints of kb Abnormal Lab Results. 13:51 Pt reports she had routine blood work done and got a call today saying she needed to kb come to the ER for potassium of 2.6. States she had low potassium during her routine labs last year also. Onset: The symptoms/episode began/occurred this morning. Severity of symptoms: At their worst the symptoms were mild in the emergency department the symptoms are unchanged. The patient has not experienced similar symptoms in the past. The patient has not recently seen a physician. 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 - Social history:: Smoking status: Patient denies any tobacco usage or history of. ROS: 13:50 Constitutional: Negative for fever, chills, and weight loss, Cardiovascular: Negative kb for chest pain, palpitations, and edema, Respiratory: Negative for shortness of breath, cough, wheezing, and pleuritic chest pain, Abdomen/GI: Negative for abdominal pain, nausea, vomiting, diarrhea, and constipation, Back: Negative for injury and pain, MS/Extremity: Negative for injury and deformity, Skin: Negative for injury, rash, and discoloration, Neuro: Negative for headache, weakness, numbness, tingling, and seizure. Exam: 13:50 Constitutional: This is a well developed, well nourished patient who is awake, alert, kb and in no acute distress. Head/Face: Normocephalic, atraumatic. Chest/axilla: Normal chest wall appearance and motion. Nontender with no deformity. No lesions are appreciated. Cardiovascular: Regular rate and rhythm with a normal S1 and S2. No gallops, murmurs, or rubs. Normal PMI, no JVD. No pulse deficits. Respiratory: Lungs have equal breath sounds bilaterally, clear to auscultation and percussion. No rales, rhonchi or wheezes noted. No increased work of breathing, no retractions or nasal flaring. Abdomen/GI: Soft, non-tender, with normal bowel sounds. No distension or tympany. No guarding or rebound. No evidence of tenderness throughout. Skin: Warm, dry with normal turgor. Normal color with no rashes, no lesions, and no evidence of cellulitis. MS/ Extremity: Pulses equal, no cyanosis. Neurovascular intact. Full, normal range of motion. Neuro: Awake and alert, GCS 15, oriented to person, place, time, and situation. Cranial nerves II-XII grossly intact. Motor strength 5/5 in all extremities. Sensory grossly intact. Cerebellar exam normal. Normal gait. Vital Signs: 11:45 BP 131 / 88; Pulse 55; Resp 17; Temp 97.6; Pulse Ox 99% ; Weight 79.38 kg; Height 5 ft. jl7 3 in. (160.02 cm); Pain 0/10; 12:29 BP 127 / 83; Pulse 52; Resp 20 S; Pulse Ox 100% on R/A; ca1 13:36 BP 141 / 83; Pulse 53; Resp 18; Temp 97.5; Pulse Ox 100% ; bp 11:45 Body Mass Index 31.00 (79.38 kg, 160.02 cm) jl7 MDM: 11:56 Patient medically screened. kb 13:49 Data reviewed: vital signs, nurses notes. Data interpreted: Pulse oximetry: on room air kb is 100 %. Interpretation: normal. Counseling: I had a detailed discussion with the patient and/or guardian regarding: the historical points, exam findings, and any diagnostic results supporting the discharge/admit diagnosis, lab results, radiology results, the need for outpatient follow up, an OB/Gyne specialist, to return to the emergency department if symptoms worsen or persist or if there are any questions or concerns that arise at home. 11/27 12:07 Order name: CBC with Diff kb 11/27 12:07 Order name: Basic Metabolic Panel; Complete Time: 12:59 kb 11/27 11:56 Order name: EKG; Complete Time: 11:57 kb 11/27 12:28 Order name: CBC with Automated Diff; Complete Time: 12:30 EDAL 11/27 11:56 Order name: EKG - Nurse/Tech; Complete Time: 12:01 kb 11/27 12:07 Order name: IV Start; Complete Time: 12:15 kb Administered Medications: 12:16 Drug: NS 0.9% with KCl 20 mEq/L 1000 ml Route: IV; Rate: calculated rate; Site: right ca1 forearm; 13:38 Follow up: IV Status: Completed infusion; IV Intake: 1000ml bp 13:20 Drug: Potassium Effervescent Tablet 50 mEq Route: PO; bp 13:38 Follow up: Response: No adverse reaction bp Disposition: 11/28/19 13:30 Discharged to Home. Impression: Hypokalemia. - Condition is Stable. - Discharge Instructions: Potassium Content of Foods, Hypokalemia. - Medication Reconciliation Form, Thank You Letter, Antibiotic Education, Prescription Opioid Use, Work release form form. - Follow up: Private Physician; When: 2 - 3 days; Reason: Recheck today's complaints, Continuance of care, Re-evaluation by your physician. Follow up: Emergency Department; When: As needed; Reason: Worsening of condition. Addendum: 11/29/2019 13:50 Co-signature as Attending Physician, Gen Jackson MD I agree with the assessment and c loera plan of care. Signatures: Dispatcher [employer] EDAL Melissa Luciano, C 40A CREW CHIEF-C C 40A CREW CHIEF-CkGen Moreland MD MD cha Leal, Jahala, RN RN jl7 Geremias Sánchez, MAHNAZ RN bp Amparo Diaz, RN RN ca1 Corrections: (The following items were deleted from the chart) 11/27 13:42 13:30 11/28/2019 13:30 Discharged to Home. Impression: Hypokalemia. Condition is bp Stable. Forms are Medication Reconciliation Form, Thank You Letter, Antibiotic Education, Prescription Opioid Use. Follow up: Private Physician; When: 2 - 3 days; Reason: Recheck today's complaints, Continuance of care, Re-evaluation by your physician. Follow up: Emergency Department; When: As needed; Reason: Worsening of condition. kb
[2019-11-28 13:53] VITALS: O2SAT 100
[2019-11-28 13:54] VITALS: BP 141/83; TEMP 97.5
--- NOTE | 2019-11-29 10:46 | EKG ---
Test Date: 2019-11-28 Test Time: 11:59:12 Customer Service Correspondence Clerk: HARPREET MEASUREMENT RESULTS: Intervals: Rate: 48 MS: 160 QRSD: 104 QT: 490 QTc: 437 [place]: P: 0 MS: 160 QRS: 57 T: 24 INTERPRETIVE STATEMENTS: Marked sinus bradycardia ST abnormality, possible digitalis effect Abnormal ECG Compared to ECG 10/02/2019 19:37:02 ST (T wave) deviation now present Sinus rhythm no longer present Myocardial infarct finding no longer present Electronically Signed On 11-29-19 10:44:59 CDT by Maximsu Ivy
== END 2019-11-28 13:42 | disposition home or self-care (01) ==
LOC: ER 11:26
DX: E87.6 Hypokalemia (principal); I10 Essential (primary) hypertension
CPT/HCPCS: 36415; 80048; 85025; 93005; 96360; 99283

== ENCOUNTER 2020-12-27 11:51 | Emergency (ER) | payer OTHER ==
[2020-12-27] MEDS ORDERED: CODEINE 30MG/APAP 300MG TAB ONE (12:46)
--- NOTE | 2020-12-27 13:10 | RAD REPORT ---
EXAM DESCRIPTION: RAD - Knee Right 3 View - 12/27/2020 12:54 pm CLINICAL HISTORY: PAIN COMPARISON: No comparisons FINDINGS: No acute fracture. No malalignment. No significant focal degenerative changes. Small knee effusion which is nonspecific IMPRESSION: No acute osseous abnormality involving the right knee.
--- NOTE | 2020-12-27 13:22 | ER ---
Nurse's Notes Former[facility] Name: Eirka Byrnes Age: 55 yrs Sex: Female : 1965 Arrival Date: 12/27/2020 Time: 11:54 Bed 9 Private MD: Adilene Holden K Diagnosis: Sprain of unspecified site of left knee Presentation: 12/27 11:57 Chief complaint: Patient states: Thursday chased grandson out door when her right knee ch5 popped. Chasing suspects today when pain returned severely. Coronavirus screen: Vaccine status: Patient reports receiving the 2nd dose of the covid vaccine. Client denies travel out of the [place] in the last 14 days. At this time, the client does not indicate any symptoms associated with coronavirus-19. Ebola Screen: Patient negative for fever greater than or equal to 101.5 degrees Fahrenheit, and additional compatible Ebola Virus Disease symptoms Patient denies exposure to infectious person. Patient denies travel to an Ebola-affected area in the 21 days before illness onset. Initial Sepsis Screen: Does the patient meet any 2 criteria? No. Patient's initial sepsis screen is negative. Does the patient have a suspected source of infection? No. Patient's initial sepsis screen is negative. Risk Assessment: Do you want to hurt yourself or someone else? Patient reports no desire to harm self or others. 11:57 Method Of Arrival: Wheelchair [facility] 11:57 Acuity: JAIRO 4 ch5 13:55 Onset of symptoms was December 24, 2020. ld1 Triage Assessment: 12:00 General: Appears in no apparent distress. uncomfortable, Behavior is calm, cooperative. ch5 Musculoskeletal: Reports pain in lateral aspect of right knee and posterior aspect of right knee. 13:55 Injury Description: Pt was running and felt a pop in her right knee. 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 - Social history:: Smoking status: Patient denies any tobacco usage or history of. Screenin:02 Abuse screen: Denies threats or abuse. Denies injuries from another. Nutritional 5 screening: No deficits noted. Tuberculosis screening: No symptoms or risk factors identified. Fall Risk None identified. Assessment: 12:02 Reassessment: No changes from previously documented assessment. Musculoskeletal: ch5 Reports pain in posterior aspect of right knee and right knee. 12:13 General: Appears in no apparent distress. uncomfortable, Behavior is calm, cooperative, ld1 appropriate for age. Pain: Complains of pain in right knee Pain does not radiate. Pain currently is 8 out of 10 on a pain scale. Quality of pain is described as throbbing, Pain began 2-3 days ago. Is continuous. Neuro: Level of Consciousness is awake, alert, obeys commands, Oriented to person, place, time, situation, Appropriate for age. Cardiovascular: Capillary refill < 3 seconds Patient's skin is warm and dry. Respiratory: Airway is patent Respiratory effort is even, unlabored, Respiratory pattern is regular, symmetrical. GI: Abdomen is round non-distended. : No signs and/or symptoms were reported regarding the genitourinary system. EENT: No signs and/or symptoms were reported regarding the EENT system. Derm: No signs and/or symptoms reported regarding the dermatologic system. Musculoskeletal: Range of motion: limited in right knee Reports pain in right knee running on Thursday evening when she felt a pop in her right knee. Pt reports pain getting better until today when she was running after a person this morning and the pain came back. 12:25 Reassessment: Attempted to give pt knee immobilizer and crutches, pt stated that she ld1 will most likely not use them. She stated she would like to wait until results come back from imaging to make her decision. Vital Signs: 11:57 BP 131 / 92; Pulse 78; Resp 18; Temp 97.4; Pulse Ox 100% ; Weight 79.38 kg; Height 5 ch5 ft. 3 in. (160.02 cm); Pain 8/10; 12:13 BP 129 / 95; Pulse 89; Resp 18; Pulse Ox 100% on R/A; Pain 8/10; ld1 11:57 Body Mass Index 31.00 (79.38 kg, 160.02 cm) [facility] ED Course: 11:54 Patient arrived in ED. mr 11:54 Adilene Holden MD is Private Physician. mr 12:00 Triage completed. ch5 12:01 Arm band placed on right wrist. ch5 12:02 Yordan Chapa, RN is Primary Nurse. ch5 12:02 Call light in reach. ch5 12:02 No provider procedures requiring assistance completed. ch5 12:06 Karthik Jung NP is PHCP. pm1 12:06 Theodore Singer MD is Attending Physician. pm1 12:55 Knee Right 3 View XRAY In Process Unspecified. EDMS 13:55 Patient did not have IV access during this emergency room visit. ld1 Administered Medications: 12:20 Not Given (Physician Discretion): [place] (HYDROcodone-acetaminophen) 5 mg-325 mg 1 tabs pm1 PO once; RASS on ADMIN: Combtv4, Very Agttd3, Agttd2, Rstlss1, AlertClm0, Drwsy-1, Lt Sdtn-2, Mod Sdtn-3, Dp Sdtn-4, UnArsble-5 12:24 Drug: Tylenol #3 (300 mg-30 mg) 2 tabs Route: PO; ld1 12:59 Follow up: Response: No adverse reaction 5 Outcome: 13:21 Discharge ordered by . pm1 13:55 Discharged to home ambulatory. ld1 13:55 Condition: stable 13:55 Discharge instructions given to patient, Instructed on discharge instructions, follow up and referral plans. medication usage, Demonstrated understanding of instructions, follow-up care, medications. 13:56 Patient left the ED. ld1 Signatures: Dispatcher [employer] [facility] Elodia Cox mr Karthik Jung, JODIE INSOLE TACK PULLER HAND pm1 Fabiana Jaramillo RN RN ld1 Yordan Chapa, RN RN 5
--- NOTE | 2020-12-27 13:22 | EDPHYS ---
Physician Documentation [facility] Name: Erika Byrnes Age: 55 yrs Sex: Female : 1965 Arrival Date: 12/27/2020 Time: 11:54 Bed 9 Private MD: Adilene Holden K ED Physician Theodore Singer HPI: 12/27 12:17 This 55 yrs old Female presents to ER via Wheelchair with complaints of Knee pm1 Injury. 12:17 The patient presents with pain, that is acute. The complaints affect the medial aspect pm1 of right knee. Context: The problem was sustained outdoors, resulted from Playing and chasing her grandson, the patient can partially bear weight, the patient is able to ambulate, with moderate difficulty, Problem is a result from a previous injury: No. 12:17 Onset: The symptoms/episode began/occurred 2 day(s) ago. Modifying factors: the pm1 symptoms are aggravated by weight bearing. Associated signs and symptoms: Pertinent negatives numbness, tingling. Treatment prior to arrival includes: knee brace. 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 The patient has not recently seen a physician. 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 - Social history:: Smoking status: Patient denies any tobacco usage or history of. ROS: 12:17 Constitutional: Negative for fever, chills, and weight loss, Cardiovascular: Negative pm1 for chest pain, palpitations, and edema, Respiratory: Negative for shortness of breath, cough, wheezing, and pleuritic chest pain. 12:17 Skin: Negative for injury, rash, and discoloration, Neuro: Negative for headache, weakness, numbness, tingling, and seizure. 12:17 MS/extremity: Positive for pain, of the medial aspect of right knee, Negative for decreased range of motion, deformity, paresthesias, swelling, tingling. 12:17 All other systems are negative. Exam: 12:17 Constitutional: This is a well developed, well nourished patient who is awake, alert, pm1 and in no acute distress. Head/Face: Normocephalic, atraumatic. 12:17 Skin: Warm, dry with normal turgor. Normal color with no rashes, no lesions, and no evidence of cellulitis. 12:17 Cardiovascular: Exam negative for acute changes, Rate: normal, Rhythm: regular, Pulses: no pulse deficits are appreciated. 12:17 Respiratory: Exam negative for acute changes, respiratory distress, shortness of breath. 12:17 Musculoskeletal/extremity: Extremities: grossly normal except: noted in the medial aspect of right knee: tenderness, There is no evidence of decreased ROM, deformity, ROM: intact in all extremities, Circulation is intact in all extremities. 12:17 Neuro: Exam negative for acute changes, Orientation: is normal, Mentation: is normal, Motor: is normal, moves all fours. Vital Signs: 11:57 BP 131 / 92; Pulse 78; Resp 18; Temp 97.4; Pulse Ox 100% ; Weight 79.38 kg; Height 5 ch5 ft. 3 in. (160.02 cm); Pain 8/10; 12:13 BP 129 / 95; Pulse 89; Resp 18; Pulse Ox 100% on R/A; Pain 8/10; ld1 11:57 Body Mass Index 31.00 (79.38 kg, 160.02 cm) ch5 MDM: 12:07 Patient medically screened. pm1 13:19 Data reviewed: vital signs. Data interpreted: Pulse oximetry: on room air is 100 %. pm1 Interpretation: normal. Counseling: I had a detailed discussion with the patient and/or guardian regarding: the historical points, exam findings, and any diagnostic results supporting the discharge/admit diagnosis, radiology results, the need for outpatient follow up, for definitive care, a orthopedic surgeon, to return to the emergency department if symptoms worsen or persist or if there are any questions or concerns that arise at home. 12/27 12:17 Order name: Knee Right 3 View XRAY; Complete Time: 13:19 pm1 Administered Medications: 12:20 Not Given (Physician Discretion): [place] (HYDROcodone-acetaminophen) 5 mg-325 mg 1 tabs pm1 PO once; RASS on ADMIN: Combtv4, Very Agttd3, Agttd2, Rstlss1, AlertClm0, Drwsy-1, Lt Sdtn-2, Mod Sdtn-3, Dp Sdtn-4, UnArsble-5 12:24 Drug: Tylenol #3 (300 mg-30 mg) 2 tabs Route: PO; ld1 12:59 Follow up: Response: No adverse reaction ch5 Disposition: 18:34 Co-signature as Attending Physician, Theodore Singer MD I agree with the assessment and rn plan of care. Attestation: The patient's history, exam findings, diagnostics, and a summary of any interventions or procedures was reviewed in detail with Karthik Jung NP. Disposition Summary: 12/27/20 13:21 Discharge Ordered Location: Home pm1 Problem: new pm1 Symptoms: have improved pm1 Condition: Stable pm1 Diagnosis - Sprain of unspecified site of left knee pm1 Followup: pm1 - With: Emergency Department - When: As needed - Reason: Worsening of condition Followup: pm1 - With: Private Physician - When: 2 - 3 days - Reason: Recheck today's complaints, Continuance of care, Re-evaluation by your physician Discharge Instructions: - Discharge Summary Sheet pm1 - Crutch Use, Adult pm1 - Knee Sprain, Adult pm1 - How to Use a Knee Immobilizer pm1 Forms: - Medication Reconciliation Form pm1 - Thank You Letter pm1 - Antibiotic Education pm1 - Prescription Opioid Use pm1 Prescriptions: - Tramadol 50 mg Oral Tablet - take 1 tablet by ORAL route every 8 hours as needed; 12 tablet; Refills: 0, pm1 Product Selection Permitted Signatures: Dispatcher [employer] EDTheodore Escobedo MD MD rn Marinas, Patrick, NP PERSONNEL TRAINING OFFICER pm1 Fabiana Jaramillo RN RN ld1 Yordan Chapa, RN RN ch5
[2020-12-27 14:19] VITALS: TEMP 97.4; O2SAT 100
[2020-12-27 14:21] VITALS: BP 129/95
== END 2020-12-27 13:56 | disposition home or self-care (01) ==
LOC: ER 11:51
DX: S83.91XA Sprain of unspecified site of right knee, initial encounter (principal); I10 Essential (primary) hypertension
CPT/HCPCS: 99283

== ENCOUNTER → 2023-02-27 | Emergency (ER) | payer OTHER ==
[~2023-02-27] MED LIST: FENTANYL CITR 100 MCG/2 ML ONE; KETOROLAC 30 MG/ML INJ ONE; METOCLOPRAMIDE 10 MG/2mL INJ ONE; NA CHLORIDE 0.9% 1,000 ML ONE
--- OUTSIDE RECORDS SUMMARY | 2023-02-27 08:21 | XMS REPORT | Continuity of Care Document ---
Author Name Unknown Address [address] [facility] [place] [address] [facility] Address [address] [facility] [place] [address] Care Team Providers Care Insurance Sales Supervisor Name Role Phone ADILENE HOLDEN Primary Care Physician Adilene Valdes Attending Clinician Unavailable [email or web address] Attending Clinician UnavailERNESTINA Flores Attending Clinician Unavailable Jamilah Salcido Attending Clinician Unavailjuice e DOREEN GONZALEZ Attending Clinician UnavailDoreen Barreto DO Attending Clinician [phone] Salma Leigh Attending Clinician [phone] Lab, Adc Fam Pob I Attending Clinician UnavailSALMA Reyes Attending Clinician Unavailable Pob1, Acute Care Clinic Attending Clinician Sabrina Phoenix MD Attending Clinician [phone] SABRINA [place] Attending Clinician Unavailable [email or web address]_S Admitting Clinician UnavailJamilah Gomez Admitting Clinician Unavailjuice mcintosh Payers Payer Name Policy Type Policy Number Effective Date Expirati on Date Source CIG[employer] 2 [id number] 2022 00:00:00 CIGNA II [id number] 2019 00:00:00 Problems Condition Name Condition Details Condition Category Status Onset Date Resolution Date Last Treatment Date Treating Clinician Comments Source Migraine equivalent syndrome Migraine equivalent syndrome Disease Active 06-29 00:00: 00 [facility] Fever, unspecifie d fever cause Fever, unspecifie d fever cause Disease Active 06-29 00:00: 00 [facility] Loose stools Loose stools Disease Active 06-29 00:00: 00 [facility] Sore throat Sore throat Disease Active 06-29 00:00: 00 [facility] Exposure to SARS-assoc iated coronaviru s Exposure to SARS-assoc iated coronaviru s Disease Active 06-29 00:00: 00 [facility] Suspected COVID-19 virus infection Suspected COVID-19 virus infection Disease Active 06-29 00:00: 00 [facility] Pain in joint of left knee Pain in joint of left knee Problem Active [facility] Strain of left knee, initial encounter Strain of left knee, initial encounter Problem Active [facility] Unspecifie d internal derangemen t of left knee Unspecifie d internal derangemen t of left knee Problem Active [facility] Left sciatic nerve pain Left sciatic nerve pain Problem Active [facility] Primary osteoarthr itis of left knee Primary osteoarthr itis of left knee Problem Active [facility] Allergies, Adverse Reactions, Alerts Allergy Name Allergy Type Status Severity Reaction(s) Onset Date Inactive Date Treating Clinician Comments Source HYDROCOD ONE-ACET AMINOPHE N DRUG Active [facility] 09-01 00:00: 00 [facility] Hydrocod one-Acet aminophe n Propensi ty to adverse reaction s Active [facility] 09-01 00:00: 00 [facility] NO KNOWN ALLERGIE S Drug Class Active [facility] Social History Social Habit Start Date Stop Date Quantity Comments Source Exposure to SARS-CoV-2 (event) 2021-08-22 00:00:00 2021-09-01 23:05:[address] [facility] Tobacco use and exposure 2019-06-30 00:00:00 2019-06-30 00:00:[address] [facility] Sex Ass[birth year] At [birth year] 00:00:00 [facility] Smoking Status Start Date Stop Date Source Never smoker [facility] Medications Ordered Medication Name Filled Medication Name Start Date Stop Date Current Medication? Ordering Clinician Indication Dosage Frequency Signature (SIG) Comments Components Source ondansetron (ZOFRAN-ODT ) disintegrat ing tablet 4 mg 09-02 05:15: 00 09-02 04:13 :00 No 4mg 4 mg, Oral, ONCE, 1 dose, On Thu09/02/21 at 0015, Routine [facility] ondansetron 4 mg disintegrat ing tablet 09-01 00:00: 00 Yes [id number] 4mg Take 1 tablet by mouth every 8 (eight) hours as needed for Nausea and Vomiting (N/V). [facility] nystatin/ma alox/diphen hydrAMINE/l idocaine 2 % viscous 1:1:1:1 Susp suspension 06-29 00:00: 00 Yes [id number] 5mL Take 5 mL by mouth 4 (four) times daily as needed (Sore Throat). Gargle and spit, do not swallow [facility] Bismuth Subsalicyla te (PEPTO-BISM OL) 262 mg tablet 06-29 00:00: 00 Yes [id number] 262mg Take 1 tablet by mouth 4 (four) times daily as needed (diarrhea) . [facility] acetaminoph en-caff-but albital per capsule 06-29 00:00: 00 Yes [id number] 1{capsu le} Take 1 capsule by mouth every 6 (six) hours as needed (migraine) . [facility] nystatin/ma alox/diphen hydrAMINE/l idocaine 2 % viscous 1:1:1:1 Susp suspension 06-29 00:00: 00 Yes [id number] 5mL Take 5 mL by mouth 4 (four) times daily as needed (Sore Throat). Gargle and spit, do not swallow [facility] Bismuth Subsalicyla te (PEPTO-BISM OL) 262 mg tablet 06-29 00:00: 00 Yes [id number] 262mg Take 1 tablet by mouth 4 (four) times daily as needed (diarrhea) . [facility] acetaminoph en-caff-but albital per capsule 06-29 00:00: 00 Yes [id number] 1{capsu le} Take 1 capsule by mouth every 6 (six) hours as needed (migraine) . [facility] nystatin/ma alox/diphen hydrAMINE/l idocaine 2 % viscous 1:1:1:1 Susp suspension 06-29 00:00: 00 Yes [id number] 5mL Take 5 mL by mouth 4 (four) times daily as needed (Sore Throat). Gargle and spit, do not swallow [facility] Bismuth Subsalicyla te (PEPTO-BISM OL) 262 mg tablet 06-29 00:00: 00 Yes [id number] 262mg Take 1 tablet by mouth 4 (four) times daily as needed (diarrhea) . [facility] acetaminoph en-caff-but albital per capsule 06-29 00:00: 00 Yes [id number] 1{capsu le} Take 1 capsule by mouth every 6 (six) hours as needed (migraine) . [facility] nystatin/ma alox/diphen hydrAMINE/l idocaine 2 % viscous 1:1:1:1 Susp suspension 06-29 00:00: 00 Yes [id number] 5mL Take 5 mL by mouth 4 (four) times daily as needed (Sore Throat). Gargle and spit, do not swallow [facility] Bismuth Subsalicyla te (PEPTO-BISM OL) 262 mg tablet 06-29 00:00: 00 Yes [id number] 262mg Take 1 tablet by mouth 4 (four) times daily as needed (diarrhea) . [facility]aff-but albital per capsule 06-29 00:00: 00 Yes [id number] 1{capsu le} Take 1 capsule by mouth every 6 (six) hours as needed (migraine) . [facility] nystatin/ma alox/diphen hydrAMINE/l idocaine 2 % viscous 1:1:1:1 Susp suspension 0 430 00:00: 00 Yes [id number] 5mL Take 5 mL by mouth 4 (four) times daily as needed (Sore Throat). Gargle and spit, do not swallow [facility] Bismuth Subsalicyla te (PEPTO-BISM OL) 262 mg tablet 0 30 00:00: 00 Yes [id number] 262mg Take 1 tablet by mouth 4 (four) times daily as needed (diarrhea) . [facility] acetaminoph en-caff-but albital per capsule 0 30 00:00: 00 Yes [id number] 1{capsu le} Take 1 capsule by mouth every 6 (six) hours as needed (migraine) . [facility] nystatin/ma alox/diphen hydrAMINE/l idocaine 2 % viscous 1:1:1:1 Susp suspension 0 30 00:00: 00 Yes [id number] 5mL Take 5 mL by mouth 4 (four) times daily as needed (Sore Throat). Gargle and spit, do not swallow [facility] Bismuth Subsalicyla te (PEPTO-BISM OL) 262 mg tablet 0 30 00:00: 00 Yes [id number] 262mg Take 1 tablet by mouth 4 (four) times daily as needed (diarrhea) . [facility] acetaminoph en-caff-but albital per capsule 0 430 00:00: 00 Yes [id number] 1{capsu le} Take 1 capsule by mouth every 6 (six) hours as needed (migraine) . [facility] hydroCHLORO thiazide 12.5 mg tablet 2019-0 2-15 00:00: 00 Yes 12.5mg Take 12.5 mg by mouth every morning. [facility] hydroCHLORO thiazide 12.5 mg tablet 2019-0 2-15 00:00: 00 Yes 12.5mg Take 12.5 mg by mouth every morning. [facility] hydroCHLORO thiazide 12.5 mg tablet 2-15 00:00: 00 Yes 12.5mg Take 12.5 mg by mouth every morning. [facility] hydroCHLORO thiazide 12.5 mg tablet 2-15 00:00: 00 Yes 12.5mg Take 12.5 mg by mouth every morning. [facility] hydroCHLORO thiazide 12.5 mg tablet 2-15 00:00: 00 Yes 12.5mg Take 12.5 mg by mouth every morning. [facility] hydroCHLORO thiazide 12.5 mg tablet 2-15 00:00: 00 Yes 12.5mg Take 12.5 mg by mouth every morning. [facility] Tramadol HCl Tramadol HCl 4-24 00:00: 00 Yes Epifanio Lobo 1 tablet as needed [facility] Hydrochloro thiazide Hydrochloro thiazide Yes Epifanio Lobo not defined [facility] Montelukast Sodium Montelukast Sodium Yes Epifanio Lobo not defined [facility] Metoprolol Succinate ER Metoprolol Succinate ER Yes Epifanio Lobo not defined [facility] Losartan Potassium Losartan Potassium Yes Epifanio Lobo not defined [facility] Vital Signs Vital Name Observation Time Observation Value Comments S ource Systolic blood pressure 2021-09-02 04:07:00 150 mm[Hg] [facility] Diastolic blood pressure 2021-09-02 04:07:00 105 mm[Hg] [facility] Heart rate 2021-09-02 04:07:00 93 /min [facility] Body temperature 2021-09-02 04:07:[address] [facility] Respiratory rate 2021-09-02 04:07:00 20 /min [facility] Body height 2021-09-02 04:07:00 157.5 cm [facility] Body weight 2021-09-02 04:07:00 70.308 kg [facility] BMI 2021-09-02 04:07:00 28.35 kg/m2 [facility] Oxygen saturation in Arterial blood by Pulse oximetry 2021-09-02 04:07:00 99 /min [facility] Systolic blood pressure 2019-06-30 17:14:00 154 mm[Hg] [facility] Diastolic blood pressure 2019-06-30 17:14:00 98 mm[Hg] [facility] Heart rate 2019-06-30 17:14:00 59 /min [facility] Body temperature 2019-06-30 17:14:[address] [facility] Respiratory rate 2019-06-30 17:14:00 16 /min [facility] Body height 2019-06-30 17:14:00 160 cm [facility] Body weight 2019-06-30 17:14:00 81.647 kg [facility] BMI 2019-06-30 17:14:00 31.89 kg/m2 [facility] Oxygen saturation in Arterial blood by Pulse oximetry 2019-06-30 17:14:00 97 /min [facility] Procedures Procedure Date / Time Performed Performing Clinician Source NOTICE OF PRIVACY PRACTICES 2021-09-02 03:59:39 Doctor Unassigned, [place] [facility] CONSENT/REFUSAL FOR DIAGNOSIS AND TREATMENT 2021-09-02 03:58:39 Doctor Unassigned, [place] [facility] CORONAVIRUS COVID-19 TESTING 2019-06-30 17:10:[address] [facility] Encounters Start Date/Time End Date/Time Encounter Type Admission Type Attending Clinicians Care Facility Care Department Encounter ID Source 2021-03-27 11:16:40 Outpatient NavinAdilene cevallos [facility] [id number] [facility] 2021-03-27 11:10:52 Outpatient Stephen Holdena [facility] [id number] [facility] 2022-12-31 00:00:00 2022-12-31 00:00:00 Outpatient [email or web address]_Ka diyala_S [facility] [id number] [facility] 2022 11:10:00 2022 11:10:00 Outpatient MACKENZIE FRAZIER [id number] Mackenzie Law 2022 11:05:00 2022 11:05:00 Outpatient MACKENZIE FRAZIER [id number] [facility] 00:00:00 2022 00:00:00 Outpatient ERNESTINA GRIFFIN MACKENZIE [id number] [facility] 2022-08-13 09:40:00 2022-08-13 09:40:00 Outpatient MACKENZIE MACKENZIE [id number] [facility] 2022-07-30 00:00:00 2022-07-30 00:00:00 Outpatient ERNESTINA GRIFFIN MACKENZIE MACKENZIE [id number] [facility] 2022-01-03 12:00:00 2022-01-03 12:00:00 Outpatient NICKY MonroyhJamilah [facility] [id number] [facility] 2021-09-01 23:11:00 2021-09-02 00:15:00 Emergency X DOREEN GONZALEZ [facility] ERT [id number] [facility] 2021-09-01 23:11:00 2021-09-02 00:15:00 Emergency Doreen Gonzalez [facility] .[id number] [facility] 2019-08-08 00:00:00 2019-08-08 00:00:00 Telephone Julia [facility] [address] ..[id number] 2019-08-08 00:00:00 2019-08-08 00:00:00 Telephone Julia [facility] ..[id number] [facility] 2019-08-07 14:19:11 2019-08-07 14:39:11 Net Trainer Visit Lab, [facility] Fam Pob Annemarie [facility] [id number] 2019-08-07 14:19:11 2019-08-07 14:39:11 Net Trainer Visit Lab, [facility] Fam Pob I Julia Salma [facility] [id number] [facility] 2019-08-07 13:20:00 2019-08-07 13:20:00 Outpatient R JULIA SALMA [facility] [id number] [facility] 2019-06-30 12:09:11 2019-06-30 13:05:13 Urgent Care Pob1, Acute Care Clinic [facility] [address] [facility] [id number] [facility] 2019-06-30 12:40:00 2019-06-30 12:40:00 Outpatient [facility] [id number] [facility] 2019-06-30 00:00:00 2019-06-30 00:00:00 Telephone [facility] [id number] [facility] 2019-06-02 10:00:00 2019-06-02 10:00:00 [facility]patient [facility] [id number] [facility] 2018-06-23 09:30:00 2018-06-23 09:30:00 [facility] [id number] [facility] 2018-05-27 10:00:00 2018-05-27 10:00:00 Outpatient [facility] [id number] [facility] Results Test Description Test Time Test Comments Results Result Co mments Source [facility]
[2023-02-27 08:52] LABS: Specific Gravity 1.025 (1.005-1.030); Urine Bacteria None Seen /HPF (<20); Urine Bilirubin NEGATIVE (Negative); Urine Blood Negative (Negative); Urine Clarity Clear (Clear); Urine Color Light-Yellow (Yellow); Urine Glucose NEGATIVE (Negative); Urine Mucus Slight /HPF (None Seen); Urine Protein NEGATIVE (Negative); Urine RBC <5 /HPF (None Seen); Urine Urobilinogen Normal (Normal); Urine pH 6.5 (5.0-7.0)
[2023-02-27 08:54] LABS: Absolute Lymphocytes (CBC) 2.4 K/uL (0.7-4.9); Hematocrit 40.4 % (36.0-45.0); Lymphocytes % 42.8 % (15.3-44.8); MCV 83.5 fL (80-100); MPV 9.3 fL (7.6-11.3); Platelets 291 thou/uL (152-406); RBC Red Blood Cell Count 4.84 M/uL (3.86-4.86)
[2023-02-27 09:07] LABS: Albumin 3.7 g/dL (3.4-5.0); Bilirubin Total 0.3 mg/dL (0.2-1.0); Protein, Total 7.6 g/dL (6.4-8.2)
--- NOTE | 2023-02-27 09:11 | RAD REPORT ---
EXAM DESCRIPTION: CT - Abdomen Pelvis Wo Contrast - 02/27/2023 8:49 am CLINICAL HISTORY: Abdominal pain. ABD PAIN COMPARISON: Abdomen Pelvis W Contrast dated 06/04/2016 TECHNIQUE: CT imaging of the abdomen and pelvis was performed without contrast. Solid organ, bowel a nd vascular assessment is limited due to lack of IV and oral contrast. All CT scans are performed using dose optimization technique as appropriate and may include automated exposure control or mA/KV adjustment according to patient size. FINDINGS: The lower lung root are clear.Postsurgical changes affect the stomach. Cholecystectomy c lips. The liver, spleen, pancreas, adrenal glands and kidneys are within normal limits for a limited non-co ntrast examination. No bowel obstruction, free air, free fluid or abscess. Moderate stool is present throughout the colon . Diverticulosis coli is noted involving the sigmoid colon. The appendix is normal. Mild anterolisthesis L4 on 5 with diffuse posterior disc bulge. IMPRESSION: No acute intra-abdominal or pelvic findings. A limited non-contrast examination was performed as detailed.
--- NOTE | 2023-02-27 09:15 | EDPHYS ---
Physician Documentation [facility] Name: Erika Byrnes Age: 57 yrs Sex: Female : 1965 Arrival Date: 02/27/2023 Time: 08:18 Bed 5 Private MD: ED Physician Onesimo Kelly HPI: 02/27 08:31 This 57 yrs old Female presents to ER via Unassigned with complaints of Fever, ec2 Back Pain. 08:31 Patient arrives today for evaluation of right flank pain. Patient reports that she has ec2 been experiencing several days of pain. States that the pain is intermittent, states that she has a history of kidney stones and this feels similar. Patient reports subjective fevers. Denies any vomiting, does complain of nausea. Denies any diarrhea symptoms. Reports some increased urinary frequency with some darker colored urine.. Historical: - Allergies: 08:36 NKA; iw - Home Meds: 08:50 Claritin 10 mg Oral tab 1 tab once daily [Active]; hb - PMHx: 08:36 Hypertension; Migraines; iw - PSHx: 08:36 section; Cholecystectomy; tummy tuck; knee; iw - Immunization history:: Adult Immunizations up to date. - Social history:: Smoking status: Patient denies any tobacco usage or history of. ROS: 08:31 Constitutional: as per hpi ec2 Exam: 08:31 Constitutional: GEN: NAD Head: atraumatic Eyes: EOMI Ears: External ears are ec2 normal. CV: regular rate LUNGS: no respiratory distress ABD: non-distended, soft, nontender, no guarding, nonrigid, right CVA TTP. SKIN: no evidence of rashes MSK: no evidence of trauma NEURO: moves all extremities equally Vital Signs: 08:33 BP 132 / 92; Pulse 73; Resp 16; Temp 97.1; Pulse Ox 100% on R/A; iw 09:30 BP 130 / 82; Pulse 75; Resp 18; Pulse Ox 99% ; ko1 MDM: 08:26 Patient medically screened. ec2 08:31 Data reviewed: vital signs. ED course: Patient arrives today for evaluation of right ec2 flank pain. Examination remarkable for well-appearing nontoxic individual is otherwise in no acute distress. Will obtain lab work, urine studies, CT imaging, treat the patient's pain and reassess the patient. Currently considering process such as UTI, pyelonephritis, ureteral stone, MSK pain.. 08:54 ED course: Urine is noninfectious appearing.. ec2 09:05 ED course: CBC is reassuring. . ec2 09:13 ED course: Metabolic profile is reassuring. CT imaging shows no evidence of acute ec2 intra-abdominal process. No evidence of ureteral stone noted. Does have some disc bulge noted. On reassessment patient is well-appearing in no acute distress. Will discharge home and follow-up with primary care doctor. Suspect MSK back pain causing her symptoms. Return precautions given. . 02/27 08:29 Order name: CBC with Diff; Complete Time: 09:05 ec2 02/27 08:29 Order name: CMP; Complete Time: 09:12 ec2 02/27 08:29 Order name: UAM; Complete Time: 08:54 ec2 02/27 08:29 Order name: CT Abd/Pelvis - Without Contrast; Complete Time: 09:12 ec2 Administered Medications: 08:41 Drug: metoCLOPramide IVP 10 mg IVP once; over 1 to 2 minutes Route: IVP; Site: right ko1 antecubital; 09:18 Follow up: Response: No adverse reaction hb 08:41 Drug: NS 0.9% IV 1000 ml IV at 1 bolus Per protocol; 1000 mL bolus Route: IV; Rate: 1 ko1 bolus; Site: right antecubital; 08:42 Drug: Ketorolac IVP 15 mg IVP once Route: IVP; Site: right antecubital; ko1 09:18 Follow up: Response: No adverse reaction hb 08:43 Drug: fentaNYL (PF) IVP 25 mcg IVP once Route: IVP; Site: right antecubital; ko1 09:18 Follow up: Response: No adverse reaction hb Disposition Summary: 02/27/23 09:14 Discharge Ordered Notes: Location: Home ec2 Condition: Stable ec2 Diagnosis - Low back pain ec2 Followup: ec2 - With: Private Physician - When: - Reason: Recheck today's complaints Discharge Instructions: - Discharge Summary Sheet ec2 - Acute Back Pain, Adult ec2 Forms: - Medication Reconciliation Form ec2 - Thank You Letter ec2 - Antibiotic Education ec2 - Prescription Opioid Use ec2 - Patient Portal Instructions ec2 - Leadership Thank You Letter ec2 Signatures: Dispatcher [employer] Kira Bolivar RN RN iw Baxter, Heather, RN RN hb Oliver, Kathy, RN RN ko1 Corral, Edwin, MD MD ec2
--- NOTE | 2023-02-27 09:15 | ER ---
Nurse's Notes [facility] Name: Erika Byrnes Age: 57 yrs Sex: Female : 1965 Arrival Date: 02/27/2023 Time: 08:18 Bed 5 Private MD: Diagnosis: Low back pain Presentation: 02/27 08:33 Chief complaint: Patient states: right back pain since last night, has had urgency and iw and vomiting since last night , hx of kidney stones 6 week ago. Coronavirus screen: At this time, the client does not indicate any symptoms associated with coronavirus-19. Ebola Screen: Patient negative for fever greater than or equal to 101.5 degrees Fahrenheit, and additional compatible Ebola Virus Disease symptoms Patient denies exposure to infectious person. Patient denies travel to an Ebola-affected area in the 21 days before illness onset. No symptoms or risks identified at this time. Initial Sepsis Screen: Does the patient meet any 2 criteria? No. Patient's initial sepsis screen is negative. Does the patient have a suspected source of infection? No. Patient's initial sepsis screen is negative. Risk Assessment: Do you want to hurt yourself or someone else? Patient reports no desire to harm self or others. Onset of symptoms was February 26, 2023. 08:33 Method Of Arrival: Ambulatory iw 08:33 Acuity: JAIRO 3 iw Historical: - Allergies: 08:36 NKA; iw - Home Meds: 08:50 Claritin 10 mg Oral tab 1 tab once daily [Active]; hb - PMHx: 08:36 Hypertension; Migraines; iw - PSHx: 08:36 section; Cholecystectomy; tummy tuck; knee; iw - Immunization history:: Adult Immunizations up to date. - Social history:: Smoking status: Patient denies any tobacco usage or history of. Screenin:40 [facility] ED Fall Risk Assessment (Adult) Score/Fall Risk Level 0 - 2 = Low Risk hb Oriented to surroundings, Maintained a safe environment, Educated pt \T\ family on fall prevention, incl call for assistance when getting out of bed. Abuse screen: Denies threats or abuse. Denies injuries from another. Nutritional screening: No deficits noted. Tuberculosis screening: No symptoms or risk factors identified. Assessment: 08:40 General: Appears in no apparent distress. Behavior is calm, cooperative. Pain: Pain hb currently is 7 out of 10 on a pain scale. Neuro: Level of Consciousness is awake, alert, obeys commands, Oriented to person, place, time, situation. Cardiovascular: Patient's skin is warm and dry. Respiratory: Respiratory effort is even, unlabored, Respiratory pattern is regular, symmetrical. GI: No signs and/or symptoms were reported involving the gastrointestinal system. : No signs and/or symptoms were reported regarding the genitourinary system. EENT: No signs and/or symptoms were reported regarding the EENT system. Derm: Skin is pink, warm \T\ dry. Musculoskeletal: Reports back pain, body aches. 09:18 Reassessment: Patient appears in no apparent distress at this time. Patient and/or hb family updated on plan of care and expected duration. Pain level reassessed. Patient is alert, oriented x 3, equal unlabored respirations, skin warm/dry/pink. Vital Signs: 08:33 BP 132 / 92; Pulse 73; Resp 16; Temp 97.1; Pulse Ox 100% on R/A; iw 09:30 BP 130 / 82; Pulse 75; Resp 18; Pulse Ox 99% ; ko1 ED Course: 08:21 Patient arrived in ED. ts1 08:24 Onesimo Kelly MD is Attending Physician. ec2 08:31 Rosetta Valiente, MAHNAZ is Primary Nurse. ko1 08:35 Triage completed. iw 08:40 Patient has correct armband on for positive identification. Provided Education on: hb tests, result times. 08:41 Arm band placed on. iw 08:42 Inserted saline lock: 20 gauge in right antecubital area, using aseptic technique. hb 08:43 UAM Sent. ko1 08:43 CMP Sent. ko1 08:43 CBC with Diff Sent. ko1 08:50 CT Abd/Pelvis - Without Contrast In Process Unspecified. EDMS 09:30 No provider procedures requiring assistance completed. ko1 09:36 IV discontinued, intact, bleeding controlled, No redness/swelling at site. Pressure ko1 dressing applied. Administered Medications: 08:41 Drug: metoCLOPramide IVP 10 mg IVP once; over 1 to 2 minutes Route: IVP; Site: right ko1 antecubital; 09:18 Follow up: Response: No adverse reaction hb 08:41 Drug: NS 0.9% IV 1000 ml IV at 1 bolus Per protocol; 1000 mL bolus Route: IV; Rate: 1 ko1 bolus; Site: right antecubital; 08:42 Drug: Ketorolac IVP 15 mg IVP once Route: IVP; Site: right antecubital; ko1 09:18 Follow up: Response: No adverse reaction hb 08:43 Drug: fentaNYL (PF) IVP 25 mcg IVP once Route: IVP; Site: right antecubital; ko1 09:18 Follow up: Response: No adverse reaction hb Medication: 08:40 VIS not applicable for this client. hb Outcome: 09:14 Discharge ordered by . ec2 09:36 Discharged to home ambulatory, ko1 09:36 Condition: stable 09:36 Discharge instructions given to patient, Instructed on discharge instructions, follow up and referral plans. Demonstrated understanding of instructions, follow-up care, 09:37 Patient left the ED. ko1 Signatures: Dispatcher [employer] Kira Bolivar RN RN Shae Colby RN RN Rosetta Valiente RN RN ko1 Rhona Garcia PAS PAS ts1 Onesimo Kelly MD MD ec2
[2023-02-27 12:34] VITALS: BP 130/82; TEMP 97.1; O2SAT 99
== END ==
LOC: ER 08:18
DX: M54.50 Low back pain, unspecified (principal); R10.31 Right lower quadrant pain; Z87.442 Personal history of urinary calculi
CPT/HCPCS: 85025; 81001; 36415; 80053; 74176; 96375; 96374; 99284; J2765; J3010; J7030